=== PATIENT | male | born 1980 | race African-American/Black ===

== ENCOUNTER 2019-03-11 03:53 | Inpatient (IN) | payer MEDICAID ==
[2019-03-11 04:15] LABS: Urine Appearance Clear; Urine Bilirubin Negative (Negative); Urine Blood Negative (Negative); Urine Color Colorless; Urine Glucose 3+(>=500 mg/dL) (Negative); Urine Ketones Trace (Negative); Urine Nitrite Negative (Negative); Urine Protein Negative (Negative); Urine Specific Gravity 1.027 (1.010-1.030); Urine Urobilinogen Negative (Negative)
[2019-03-11] MEDS ORDERED: Ketorolac INJ* 30 MG/ML 1 ML VIAL IV PUSH ONE (04:25)
[2019-03-11] MEDS ORDERED: Morphine 4 MG/ML VIAL (1 ml) 4 MG/ML VIAL IV ONE (04:25)
--- NOTE | 2019-03-11 04:33 | ED ---
Back Pain - HPI Summary HPI Summary: Pt is a 38 y/o M presenting to the ED with a chief complaint of R-sided back pain initially onset a couple of days ago that radiates down to his groin and worsened tonight. He reports dysuria, increased urinary frequency, and waking up with dry mouth. He denies fever, decreased appetite, hematuria, or vomiting. - History of Current Complaint Chief Complaint: EDFlankPain Stated Complaint: BACK PAIN PER PT Time Seen by Provider: 03/11/19 04:18 Hx Obtained From: Patient Onset/Duration: Gradual Onset, Lasting Days, Still Present Onset/Duration: Started Days Ago, Still Present Timing: Constant, Lasting Days Back Pain Location: Radiates To - R flank, radiates to groin Severity Initially: Moderate Severity Currently: Severe Pain Intensity: 9 Pain Scale Used: 0-10 Numeric Aggravating Symptom(s): Nothing Alleviating Symptom(s): Nothing Associated Signs And Symptoms: Positive: Flank Pain. Negative: Fever - Allergies/Home Medications Allergies/Adverse Reactions: Allergies Allergy/AdvReac Type Severity Reaction Status Date / Time No Known Allergies Allergy Verified 03/11/19 03:59 PMH/Surg Hx/FS Hx/Imm Hx Previously Healthy: Yes Endocrine/Hematology History: Denies: Hx Diabetes Cardiovascular History: Denies: Hx Hypertension Infectious Disease History: No Infectious Disease History: Denies: Traveled Outside the [place] in Last 30 Days - Family History Known Family History: Negative: Cardiac Disease - Social History Alcohol Use: Daily Alcohol Amount: "1 bottle a day" Hx Substance Use: Yes Substance Use Type: Reports: Marijuana Hx Tobacco Use: Yes Smoking Status (MU): Light Every Day Tobacco Smoker Type: Cigarettes Have You Smoked in the Last Year: Yes Review of Systems Constitutional: Other - dry mouth Negative: Fever, Other - decreased appetite Negative: Vomiting Positive: dysuria, frequency, flank pain. Negative: hematuria All Other Systems Reviewed And Are Negative: Yes Physical Exam - Summary Physical Exam Summary: Appearance: Well-appearing, Well-nourished, lying in bed comfortably Skin: Warm, dry, no obvious rash Eyes: sclera anicteric, no conjunctival pallor ENT: mucous membranes moist, pharynx appears normal Neck: Supple, nontender Respiratory: Clear to auscultation, no signs of respiratory distress Cardiovascular: Normal S1, S2. No murmurs. Normal distal pulses in tibial and radial bilaterally. Abdomen: Soft, mild R sided abd tenderness, normal active bowel sounds present Musculoskeletal: Normal, Strength/ROM Intact Neurological: A&Ox3, awake and alert, mentation is normal, speech is fluent and appropriate Psychiatric: affect is normal, does not appear anxious or depressed Triage Information Reviewed: Yes Vital Signs On Initial Exam: Initial Vitals Temp Pulse Resp BP Pulse Ox 97.0 F 92 16 155/103 96 03/11/19 03:54 03/11/19 03:54 03/11/19 03:54 03/11/19 03:54 03/11/19 03:54 Vital Signs Reviewed: Yes Diagnostics - Vital Signs Vital Signs Temp Pulse Resp BP Pulse Ox 03/11/19 04:22 93 97 03/11/19 04:21 92 148/113 97 03/11/19 03:54 97.0 F 92 16 155/103 96 - Laboratory Lab Results: Lab Results 03/11/19 Range/Units 04:00 Urine Color Colorless Urine Appearance Clear Urine pH 5.0 (5-9) Ur Specific [place] 1.027 (1.010-1.030) Urine Protein Negative (Negative) Urine Ketones Trace A (Negative) Urine Blood Negative (Negative) Urine Nitrate Negative (Negative) Urine Bilirubin Negative (Negative) Urine Urobilinogen Negative (Negative) Ur Leukocyte Esterase Negative (Negative) Urine Glucose 3+(>=500 mg/dl) A (Negative) Result Diagrams: 03/11/19 04:34 03/11/19 18:00 Lab Statement: Any lab studies that have been ordered have been reviewed, and results considered in the medical decision making process. Back Pain Course/Dx - Course Course Of Treatment: Pt is a 38 y/o M presenting to the ED with a chief complaint of R-sided back pain initially onset a couple of days ago that radiates down to his groin. He reports increased urinary frequency, and waking up with dry mouth. He denies fever, decreased appetite, hematuria, or vomiting. On exam, he has mild R-sided abd tenderness. Pts hematology shows Hct of 38 , MCH of 39, and MCHC of 43. His chemistry shows Chloride of 78, Anion Gap of 21 , Creatinine of 1.50, and Lipase of 156. Labs significant for Sodium of 110, CO2 of 11, and Glucose of 725. 0551 - I spoke with Dr. Moses who accepts the pt for admission with dx of diabetic ketoacidosis. - Diagnoses Provider Diagnoses: DKA (diabetic ketoacidoses) - Critical Care Time Critical Care Time: 30-74 min - 25min Discharge ED - Sign-Out/Discharge Documenting (check all that apply): Patient Departure Patient Received Moderate/Deep Sedation with Procedure: No - Discharge Plan Condition: Stable Disposition: ADMITTED TO [facility] - Billing Disposition and Condition Condition: STABLE Disposition: Admitted to [facility] - Attestation Statements Document Initiated by Scribe: Yes Documenting Scribe: Neida Balderrama Provider For Whom Carolinaibe is Documenting (Include Credential): Jean-Paul Sadler MD. Scribe Attestation: INeida, scrbrandoned for Jean-Paul Sadler MD. on 03/12/19 at [id number]. Scribe Documentation Reviewed: Yes Provider Attestation: The documentation as recorded by the carolinaibeNeida accurately reflects the service I personally performed and the decisions made by me, Jean-Paul Sadler MD. Status of Scribe Document: Viewed Consult Consult: [id number] - I spoke with Dr. Moses who accepts the pt for admission with dx of diabetic ketoacidosis.
[2019-03-11] MEDS: NS 0.9% 1000 ML** 2,000 ML IV ONE (04:45)
[2019-03-11 05:21] LABS: Hematocrit 38 % (42-52); Hemoglobin 16.4 g/dL (14.0-18.0); Mean Corpuscular HGB Conc 43 g/dL (31-36); Mean Corpuscular Hemoglobin 39 pg (27-31); Mean Corpuscular Volume 92 fL (80-94); Red Blood Count 4.18 10^6 /uL (4.18-5.48); Red Cell Distribution Width 15 % (10-15); White Blood Count 3.9 10^3/uL (3.5-10.8)
[2019-03-11 05:45] LABS: Albumin 5.1 g/dL (3.2-5.2); Alkaline Phosphatase 59 U/L (34-104); Calcium 9.4 mg/dL (8.6-10.3); Chloride 78 mmol/L (101-111); EGFR African American 62.7 (>60); EGFR Non-African American 51.8 (>60); Globulin 2.6 g/dL (2-4); Total Protein 7.7 g/dL (6.4-8.9)
[2019-03-11 05:46] LABS: ALT 28 U/L (7-52); HDL Cholesterol 22.1 mg/dL
[2019-03-11 05:49] LABS: Cholesterol 816 mg/dL; Triglycerides 7102 mg/dL
[2019-03-11 05:50] LABS: Anion Gap 21 mmol/L (2-11)
[2019-03-11] MEDS ORDERED: Insulin REGULAR(*) 1 UNITS UNIT IV PUSH ONE (05:50)
[2019-03-11 05:51] LABS: CO2 Carbon Dioxide 11 mmol/L (22-32); Glucose 725 mg/dL (70-100); Sodium 110 mmol/L (135-145)
[2019-03-11 05:52] LABS: BUN/Creatinine Ratio 11.3 (8-20); Blood Urea Nitrogen 17 mg/dL (6-24)
[2019-03-11] MEDS ORDERED: Insulin Infusion 100unit/100mL 100 UNITS/100 ML UNIT IV SCH ×2 (06:00→07:03)
[2019-03-11 06:08] LABS: HIV 4th Generation Nonreactive (Nonreactive)
[2019-03-11 06:16] LABS: LDL Cholesterol Direct 80 mg/dL
[2019-03-11 06:21] LABS: Platelet Count 114 10^3/uL (150-450)
[2019-03-11 06:24] LABS: ABS Eosinophils 0.2 10^3/ul (0-0.6); ABS Lymphocytes 1.5 10^3/ul (1.0-4.8); ABS Monocytes 0.4 10^3/ul (0-0.8); ABS Neutrophils 1.8 10^3/ul (1.5-7.7)
[2019-03-11] MEDS ORDERED: Ondansetron INJ* 2 MG/ML VIAL IV PRN (06:38)
[2019-03-11 06:44] LABS: TSH (Thyroid Stimulating Horm) 1.28 mcIU/mL (0.34-5.60)
[2019-03-11] MEDS ORDERED: LORazepam TAB(*) 1 MG PO SCH (07:00)
[2019-03-11 07:34] LABS: Anion Gap 9 mmol/L (2-11); CO2 Carbon Dioxide 24 mmol/L (22-32); Chloride 86 mmol/L (101-111); EGFR African American 76.7 (>60); EGFR Non-African American 63.4 (>60); Glucose 650 mg/dL (70-100); Sodium 119 mmol/L (135-145)
[2019-03-11] MEDS: NS 0.9% 1000 ML** 1,000 ML IV SCH ×3 (07:48→19:19)
[2019-03-11 08:14] LABS: Calcium 9.2 mg/dL (8.6-10.3); Chloride 88 mmol/L (101-111); EGFR African American 71.4 (>60); Glucose 439 mg/dL (70-100); Phosphorus 3.8 mg/dL (2.5-5.0)
[2019-03-11] MEDS ORDERED: NS 0.9% 1000 ML** 1,000 ML IV ONE (08:25)
[2019-03-11 08:43] LABS: Sodium 118 mmol/L (135-145)
--- NOTE | 2019-03-11 08:43 | PN ---
Date of Service: 03/11/19 - [facility] note Critical Care Services: Pt seen and examined at bedside. Pt presented for evaluation of abd pain and back pain, was noted to have AG metabolic acidosis. Pt was admitted for management of DKA, hypertriglyceredmia, pancreatitis. Pt with significant ETOH abuse, was admitted in the past for ETOH induced pancreatitis. Pt continues to drink. He has not seen PCP for many years. He has been having polydipsia, polyuria for few days. He has also been having back pain and RUQ pain. Denies N,V,diarrhea. Reports subjective fevers and chills for 1 day. Patient was given 3L fluid bolus, was started on Insulin drip, currently at 10 units. Pt denies any other complaints other than back pain. Vital Signs: Temp Pulse Resp BP SpO2 FiO2 97.7 F 72 13 136/95 97 03/11/19 07:42 03/11/19 08:15 03/11/19 08:15 03/11/19 08:15 03/11/19 08:15 Physical Exam: Gen: Pt in NAD HEENT: PERRLA, dry mucus membrane Lungs: Clear to auscultation Cardiac: S1, S2+ Abdomen: Soft, BS+, mild tenderness in RUQ, no rebound Extremities: Normal ROM Neuro: No focal deficits Skin: Dry, no rash Fluid Balance (Past 24 Hours): Intake & Output 03/09/19 03/10/19 03/11/19 03/12/19 06:59 06:59 06:59 06:59 Intake Total 1999 Balance 1999 Weight 230 lb Intake: IV Fluids 1999 Labs: Laboratory Results - last 24 hr 03/11/19 03/11/19 03/11/19 04:00 04:33 04:34 WBC 3.9 RBC 4.18 Hgb 16.4 Hct 38 L MCV 92 MCH 39 H MCHC 43 H RDW 15 Plt Count 114 L MPV 11.0 H Neut % (Auto) Not Reportable Lymph % (Auto) Not Reportable [place]wey % (Auto) Not Reportable Eos % (Auto) Not Reportable Baso % (Auto) Not Reportable Absolute Neuts (auto) 1.8 Absolute Lymphs (auto) 1.5 Absolute Monos (auto) 0.4 Absolute Eos (auto) 0.2 Absolute Basos (auto) Not Reportable Absolute Nucleated RBC Not Reportable Neutrophils % 45.0 Lymphocytes % 39.0 Monocytes % 11.0 Eosinophils % 5.0 Nucleated RBC % Not Reportable Normal RBC Morphology Normal ABG pH ABG pCO2 ABG pO2 ABG HCO3 ABG O2 Saturation ABG Base Excess Sodium Potassium Chloride Carbon Dioxide Anion Gap BUN Creatinine Est GFR ( Amer) Est GFR (Non-Af Amer) BUN/Creatinine Ratio Glucose POC Glucose (mg/dL) > 444 H* Lactic Acid Calcium Phosphorus Total Bilirubin AST ALT Alkaline Phosphatase Total Protein Albumin Globulin Albumin/Globulin Ratio Triglycerides Cholesterol LDL Cholesterol LDL Cholesterol Direct HDL Cholesterol Lipase TSH Urine Color Colorless Urine Appearance Clear Urine pH 5.0 Ur Specific [place] 1.027 Urine Protein Negative Urine Ketones Trace A Urine Blood Negative Urine Nitrate Negative Urine Bilirubin Negative Urine Urobilinogen Negative Ur Leukocyte Esterase Negative U Sodium Concentration Urine Glucose 3+(>=500 mg/dl) A HIV 1&2 Ab/P24 Ag 4thGn 03/11/19 03/11/19 03/11/19 04:34 04:34 04:35 WBC RBC Hgb Hct MCV MCH MCHC RDW Plt Count MPV Neut % (Auto) Lymph % (Auto) [place] % (Auto) Eos % (Auto) Baso % (Auto) Absolute Neuts (auto) Absolute Lymphs (auto) Absolute Monos (auto) Absolute Eos (auto) Absolute Basos (auto) Absolute Nucleated RBC Neutrophils % Lymphocytes % Monocytes % Eosinophils % Nucleated RBC % Normal RBC Morphology ABG pH ABG pCO2 ABG pO2 ABG HCO3 ABG O2 Saturation ABG Base Excess Sodium 110 L* Potassium TNP Chloride 78 L Carbon Dioxide 11 L* Anion Gap 21 H BUN 17 Creatinine 1.50 H Est GFR ( Amer) 62.7 Est GFR (Non-Af Amer) 51.8 BUN/Creatinine Ratio 11.3 Glucose 725 H* POC Glucose (mg/dL) Lactic Acid 1.3 Calcium 9.4 Phosphorus Total Bilirubin 0.40 AST TNP ALT 28 Alkaline Phosphatase 59 Total Protein 7.7 Albumin 5.1 Globulin 2.6 Albumin/Globulin Ratio 2.0 Triglycerides 7102 Cholesterol 816 LDL Cholesterol LDL Cholesterol Direct 80 HDL Cholesterol 22.1 Lipase 156 H TSH 1.28 Urine Color Urine Appearance Urine pH Ur Specific [place] Urine Protein Urine Ketones Urine Blood Urine Nitrate Urine Bilirubin Urine Urobilinogen Ur Leukocyte Esterase U Sodium Concentration Urine Glucose HIV 1&2 Ab/P24 Ag 4thGn Nonreactive 03/11/19 03/11/19 03/11/19 06:03 06:19 06:24 WBC RBC Hgb Hct MCV MCH MCHC RDW Plt Count MPV Neut % (Auto) Lymph % (Auto) [place] % (Auto) Eos % (Auto) Baso % (Auto) Absolute Neuts (auto) Absolute Lymphs (auto) Absolute Monos (auto) Absolute Eos (auto) Absolute Basos (auto) Absolute Nucleated RBC Neutrophils % Lymphocytes % Monocytes % Eosinophils % Nucleated RBC % Normal RBC Morphology ABG pH 7.36 ABG pCO2 39 ABG pO2 88 ABG HCO3 22.5 ABG O2 Saturation TNP ABG Base Excess -3.1 L Sodium 119 L* D Potassium TNP Chloride 86 L Carbon Dioxide 24 Anion Gap 9 BUN Creatinine 1.26 H Est GFR ( Amer) 76.7 Est GFR (Non-Af Amer) 63.4 BUN/Creatinine Ratio Glucose 650 H* POC Glucose (mg/dL) Lactic Acid Calcium 9.0 Phosphorus Total Bilirubin AST ALT Alkaline Phosphatase Total Protein Albumin Globulin Albumin/Globulin Ratio Triglycerides Cholesterol LDL Cholesterol LDL Cholesterol Direct HDL Cholesterol Lipase TSH Urine Color Urine Appearance Urine pH Ur Specific [place] Urine Protein Urine Ketones Urine Blood Urine Nitrate Urine Bilirubin Urine Urobilinogen Ur Leukocyte Esterase U Sodium Concentration 23 Urine Glucose HIV 1&2 Ab/P24 Ag 4thGn 03/11/19 03/11/19 07:17 07:21 WBC RBC Hgb Hct MCV MCH MCHC RDW Plt Count MPV Neut % (Auto) Lymph % (Auto) [place] % (Auto) Eos % (Auto) Baso % (Auto) Absolute Neuts (auto) Absolute Lymphs (auto) Absolute Monos (auto) Absolute Eos (auto) Absolute Basos (auto) Absolute Nucleated RBC Neutrophils % Lymphocytes % Monocytes % Eosinophils % Nucleated RBC % Normal RBC Morphology ABG pH ABG pCO2 ABG pO2 ABG HCO3 ABG O2 Saturation ABG Base Excess Sodium Potassium Chloride 88 L Carbon Dioxide Anion Gap BUN Creatinine 1.34 H Est GFR ( Amer) 71.4 Est GFR (Non-Af Amer) 59.0 BUN/Creatinine Ratio Glucose 439 H POC Glucose (mg/dL) > 444 H* Lactic Acid Calcium 9.2 Phosphorus 3.8 Total Bilirubin AST ALT Alkaline Phosphatase Total Protein Albumin Globulin Albumin/Globulin Ratio Triglycerides Cholesterol LDL Cholesterol LDL Cholesterol Direct HDL Cholesterol Lipase TSH Urine Color Urine Appearance Urine pH Ur Specific [place] Urine Protein Urine Ketones Urine Blood Urine Nitrate Urine Bilirubin Urine Urobilinogen Ur Leukocyte Esterase U Sodium Concentration Urine Glucose HIV 1&2 Ab/P24 Ag 4thGn Studies: CT abdomen- pending EKG: Normal sinus rhythm, no acute ST changes Nutrition: NPO since on Insulin drip Impression: 38 y o m with alcohol abuse with h/o pancreatitis a/w abd pain, back pain. 1. DKA 2. Acute pancreatitis 3.Severe hypertriglyceredemia 4.Hyponatremia 5. AG metabolic acidosis 6.Acute renal failure 7.ETOH abuse 8. Thrombocytopenia Plan: 1. DKA/AG metabolic acidosis/Hypertriglycerdemia/Pancreatitis: ETOH induced pancreatitis, also contributed by hypertriglyceredmia. Pt receiving fluid resuscitation, also started on Insulin drip which would be adjusted as per DKA protocol. Will monitor sugars q hourly. Unable to obtain potassium levels due to severe hypertriglyceredemia. Contacted lab/Dr Schneider, will be able to check over I-STAT. BMP sent. Hyponatremia sec to hyperglycemia, corrected sodium around 127. NPO for now, AG closed. Will obtain CT abdomen for evaluation of intraabdominal pathology. Will hold off on abx for now. Will correct hypertriglyceredia with insulin as omega-3 FA are not available and fibrates would take 2-3 weeks to work. Pt on [facility] protocol for ETOH withdrawl. Thiamine, folate ordered. Will check BMP q hrs. Monitor UO closely. Replete electrolytes as indicated when able to measure. 2. Thromboctopenia: Sec to ETOH abuse and possible cirrhosis 2.DVT px: Lovenox Critical Care Time: 30 min
[2019-03-11] MEDS: Enoxaparin(*) 40 MG/0.4 ML SYR SUBCUT SCH (09:33)
[2019-03-11 09:50] LABS: Potassium, Whole Blood 4.9 mmol/L (3.4-4.5)
--- NOTE | 2019-03-11 09:52 | HP ---
HISTORY AND PHYSICAL: ADDENDUM: PHYSICAL EXAMINATION GENERAL: Mildly uncomfortable-appearing man, but in no acute distress, alert and interactive, very pleasant. VITAL SIGNS: Afebrile, heart rate 70s, blood pressure 125/91, respiratory rate 16, oxygen saturation 97% on room air. HEENT: Dry mucous membranes. OP clear. Sclerae anicteric. NECK: Supple. No JVD. HEART: Regular rate and rhythm. No murmurs, gallops, or rubs. LUNGS: Clear to auscultation bilaterally. ABDOMEN: Soft, diffusely tender to palpation without guarding or rebound. No distention. No fluid wave. BACK: CVA punch tenderness on the right. No spinal tenderness. NEURO: A and O x3. No focal weakness. SKIN: Mildly diaphoretic. DIAGNOSTIC STUDIES/LAB DATA: CBC notable for platelets of 114, no leukocytosis. BMP notable for sodium 110, corrected to low 120s for hyperglycemia. Potassium not tested due to hemolysis. Carbon dioxide 11 with anion gap 21. Creatinine newly elevated to 1.5 with normal BUN. Glucose 725. LFTs unremarkable; however, AST was not tested. Lipids with triglycerides 7000. Lipase 156. UA significant for trace ketones and glucose. ABG not performed. ASSESSMENT AND PLAN: Mr. Garcia is a 38-year-old man with a history of alcohol use disorder and pancreatitis, who is presenting with right flank pain, abdominal pain, polyuria, and polydipsia. He was found with hyperglycemia, hyponatremia. UA with ketones. He is being admitted to the ICU for treatment of diabetic ketoacidosis. 1. Diabetic ketoacidosis. The patient should be continued on IV fluids with normal saline at 250 mL/hour. We will continue to monitor volume status. He is also to be continued on insulin drip at 0.1 unit/kg/hour. He will have fingerstick monitoring every 1 to 2 hours. His potassium has been repeated and is still pending. When this level resolves, we will supplement with potassium. He will have a BMP with mags repeated in 2 hours to monitor for potassium levels and anion gap. We will order ABG and follow up results for pH to determine if the patient needs bicarb. He will be monitored closely for signs of infection, although this is currently low on differential given the absence of fever, leukocytosis, and normal lactate. 2. Right flank pain. While the patient did have CVA tenderness on the right, he currently is without evidence for urinary tract infection or nephrolithiasis per UA. It is possible that he is experiencing pain from pancreatitis, which would typically be epigastric pain that radiates to his back, so this would be an atypical presentation. Of note, his lipase was elevated to 156. He denies anorexia, nausea, or vomiting. We will continue IV fluids in case of pancreatitis and monitor his exam closely. 3. Alcohol use disorder. We will initiate the patient on [place] protocol with thiamine and folic acid supplements. Importance of alcohol cessation was stressed with the patient. 4. Tobacco use disorder. Discussed with the patient importance of tobacco cessation, especially given family history of lung cancer. He expresses understanding of this. 5. DVT prophylaxis, initiate Lovenox subcu daily. 6. Code status. Full code. TIME SPENT: Approximately 60 minutes was spent on admission of this patient, more than half of which was spent at bedside for interview and exam. [id number]/[facility] #: [id number] EUGENIO
--- NOTE | 2019-03-11 10:08 | HP ---
CC: Marcy Soliz MD* HISTORY AND PHYSICAL: DATE OF ADMISSION: 03/11/19 PRIMARY CARE PHYSICIAN: Marcy Soliz MD HEALTHCARE PROXY: His healthcare proxy is his Ayush bonilla. CODE STATUS: Full. CHIEF COMPLAINT: Right flank pain, abdominal pain, polyuria, and polydipsia for 3 days. HISTORY OF PRESENT ILLNESS: Mr. Garcia is a 38-year-old man with a history of alcohol use disorder complicated by hospitalization for acute pancreatitis in 2013, who is presenting with few days of right flank pain associated with diffuse abdominal pain, polyuria, and polydipsia. He reports being in his usual state of health until 4 days ago when these symptoms started. He denies history of diabetes, but does report a history of heavy alcohol use. He states that he drinks about 1/5th of liquor approximately 4 days per week. Over the last few days, he has had an okay appetite. Denies nausea, vomiting, constipation, diarrhea. He does think he has had intermittent fevers, although has not measured this at home. He reports significant dry mouth. Otherwise, he denies shortness of breath, chest pain, rigors, lower extremity swelling, jaundice, dysuria, or hematuria. In the emergency room, the patient was noted to have [id number] glucose of over 444; so a basic was checked, revealing a sodium of 110, carbon dioxide of 11, anion gap 21, and glucose 725. UA was significant for glucosuria and ketones. He did not have a fever or leukocytosis. He was ordered for insulin 5 units IV push and started on insulin drip. He was also ordered for 2 L of normal saline, morphine, ketorolac, and asked to be admitted to the hospitalist service for DKA management. PAST MEDICAL HISTORY: Alcohol use disorder, complicated by acute pancreatitis, hospitalization in 2013. HOME MEDICATIONS: None. ALLERGIES: No known drug allergies. FAMILY HISTORY: Both parents had diabetes. His father from an MS. He also had lung cancer and was an active smoker. His sister has diabetes and is on dialysis, not insulin dependent. SOCIAL HISTORY: The patient lives with his mother Alejandra, and his fiAyush louise. 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 He smokes about 5 to 6 cigarettes per day and drinks about 4/5th of liquor per week. He denies recreational drug use. ROS: 10-point ROS performed and pertinent positive and negatives are listed in the HPI. PHYSICAL EXAMINATION GENERAL: Mildly uncomfortable-appearing man, but in no acute distress, alert and interactive, very pleasant. VITAL SIGNS: Afebrile, heart rate 70s, blood pressure 125/91, respiratory rate 16, oxygen saturation 97% on room air. HEENT: Dry mucous membranes. OP clear. Sclerae anicteric. NECK: Supple. No JVD. HEART: Regular rate and rhythm. No murmurs, gallops, or rubs. LUNGS: Clear to auscultation bilaterally. ABDOMEN: Soft, diffusely tender to palpation without guarding or rebound. No distention. No fluid wave. BACK: CVA punch tenderness on the right. No spinal tenderness. NEURO: A and O x3. No focal weakness. SKIN: Mildly diaphoretic. DIAGNOSTIC STUDIES/LAB DATA: CBC notable for platelets of 114, no leukocytosis. BMP notable for sodium 110, corrected to low 120s for hyperglycemia. Potassium not tested due to hemolysis. Carbon dioxide 11 with anion gap 21. Creatinine newly elevated to 1.5 with normal BUN. Glucose 725. LFTs unremarkable; however, AST was not tested. Lipids with triglycerides 7000. Lipase 156. UA significant for trace ketones and glucose. ABG not performed. ASSESSMENT AND PLAN: Mr. Garcia is a 38-year-old man with a history of alcohol use disorder and pancreatitis, who is presenting with right flank pain, abdominal pain, polyuria, and polydipsia. He was found with hyperglycemia, hyponatremia. UA with ketones. He is being admitted to the ICU for treatment of diabetic ketoacidosis. 1. Diabetic ketoacidosis. The patient should be continued on IV fluids with normal saline at 250 mL/hour. We will continue to monitor volume status. He is also to be continued on insulin drip at 0.1 unit/kg/hour. He will have fingerstick monitoring every 1 to 2 hours. His potassium has been repeated and is still pending. When this level resolves, we will supplement with potassium. He will have a BMP repeated in 2 hours to monitor for potassium levels and anion gap. We will order ABG and follow up results for pH to determine if the patient needs bicarb. He will be monitored closely for signs of infection, although this is currently low on differential given the absence of fever, leukocytosis, and normal lactate. 2. Right flank pain. While the patient did have CVA tenderness on the right, he currently is without evidence for urinary tract infection or nephrolithiasis per UA. It is possible that he is experiencing pain from pancreatitis, which would typically be epigastric pain that radiates to his back, so this would be an atypical presentation. Of note, his lipase was elevated to 156. He denies anorexia, nausea, or vomiting. We will continue IV fluids in case of pancreatitis and monitor his exam closely. 3. Alcohol use disorder. We will initiate the patient on [place] protocol with thiamine and folic acid supplements. Importance of alcohol cessation was stressed with the patient. 4. Tobacco use disorder. Discussed with the patient importance of tobacco cessation, especially given family history of lung cancer. He expresses understanding of this. 5. DVT prophylaxis, initiate Lovenox subcu daily. 6. Code status. Full code. TIME SPENT: Approximately 60 minutes was spent on admission of this patient, more than half of which was spent at bedside for interview and exam. [id number]/[facility] #: [id number]/[facility] #: [id number] EUGENIO
[2019-03-11] MEDS ORDERED: Insulin GLARGINE(*) 1 UNITS UNIT ONE (10:51)
[2019-03-11] MEDS ORDERED: Insulin GLARGINE(*) 1 UNITS UNIT SUBCUT ONE (11:00)
[2019-03-11 11:28] LABS: Triglycerides 6519 mg/dL
[2019-03-11 11:29] LABS: Anion Gap 22 mmol/L (2-11); CO2 Carbon Dioxide 8 mmol/L (22-32)
[2019-03-11] MEDS ORDERED: D5W 1/2 NS 1000 ML BAG* 1,000 ML IV SCH ×2 (12:00→15:16)
[2019-03-11] MEDS ORDERED: Iodixanol* (CONTRAST) 320 MG/ML 100 ML SDV IV ONE (12:37)
[2019-03-11 14:15] LABS: Potassium, Whole Blood 5.9 mmol/L (3.4-4.5)
[2019-03-11 14:22] LABS: Anion Gap 12 mmol/L (2-11); CO2 Carbon Dioxide 17 mmol/L (22-32); Calcium 8.5 mg/dL (8.6-10.3); Chloride 96 mmol/L (101-111); EGFR African American 110.3 (>60); EGFR Non-African American 91.1 (>60); Glucose 125 mg/dL (70-100); Phosphorus 3.6 mg/dL (2.5-5.0); Sodium 125 mmol/L (135-145)
[2019-03-11] MEDS: Thiamine TAB* 100 MG TAB PO SCH (14:53)
[2019-03-11] MEDS: Multivitamins/Minerals TAB PO SCH (14:53)
[2019-03-11] MEDS: Folic Acid TAB* 1 MG PO SCH (14:53)
[2019-03-11 15:16] LABS: Triglycerides 5358 mg/dL
[2019-03-11 18:23] LABS: Potassium, Whole Blood 5.1 mmol/L (3.4-4.5)
[2019-03-11 18:50] LABS: CO2 Carbon Dioxide 22 mmol/L (22-32); Chloride 94 mmol/L (101-111); EGFR African American 97.9 (>60); EGFR Non-African American 80.9 (>60); Glucose 268 mg/dL (70-100); Sodium 123 mmol/L (135-145)
[2019-03-11 18:51] LABS: Anion Gap 7 mmol/L (2-11); Calcium 8.7 mg/dL (8.6-10.3)
[2019-03-11 19:03] LABS: BUN/Creatinine Ratio 11.8 (8-20); Blood Urea Nitrogen 12 mg/dL (6-24)
[2019-03-11] MEDS ORDERED: Ketorolac INJ* 15 MG/ML 1 ML VIAL ONE (19:07)
[2019-03-11] MEDS: Ketorolac INJ* 15 MG/ML 1 ML VIAL IV PUSH PRN (19:20)
[2019-03-11] MEDS: Insulin LISPRO* 1 UNITS UNIT SUBCUT SCH (21:07)
[2019-03-12] MEDS: Ketorolac INJ* 15 MG/ML 1 ML VIAL IV PUSH PRN ×2 (06:24→23:41)
[2019-03-12] MEDS: Enoxaparin(*) 40 MG/0.4 ML SYR SUBCUT SCH (06:24)
[2019-03-12 06:59] LABS: Hematocrit 33 % (42-52); Hemoglobin 14.3 g/dL (14.0-18.0); Mean Corpuscular HGB Conc 43 g/dL (31-36); Mean Corpuscular Hemoglobin 39 pg (27-31); Mean Corpuscular Volume 90 fL (80-94); Mean Platelet Volume 11.3 fL (7.4-10.4); Platelet Count 108 10^3/uL (150-450); Red Blood Count 3.69 10^6 /uL (4.18-5.48); Red Cell Distribution Width 15 % (10-15); White Blood Count 3.7 10^3/uL (3.5-10.8)
[2019-03-12 07:37] LABS: Calcium 8.4 mg/dL (8.6-10.3); EGFR African American 94.7 (>60); EGFR Non-African American 78.2 (>60)
[2019-03-12 08:59] LABS: BUN/Creatinine Ratio 10.5 (8-20)
[2019-03-12] MEDS: Insulin LISPRO* 1 UNITS UNIT SUBCUT SCH ×4 (09:13→21:25)
[2019-03-12] MEDS: Insulin GLARGINE(*) 1 UNITS UNIT SUBCUT SCH (09:13)
[2019-03-12] MEDS: Multivitamins/Minerals TAB PO SCH (09:14)
[2019-03-12] MEDS: Thiamine TAB* 100 MG TAB PO SCH (09:14)
[2019-03-12] MEDS: Folic Acid TAB* 1 MG PO SCH (09:14)
--- NOTE | 2019-03-12 09:51 | PN ---
Date of Service: 03/12/19 Critical Care Services: DKA overall improved but GAP widening this AM and glucose up Vital Signs: Temp Pulse Resp BP SpO2 FiO2 36.8 C 67 12 141/108 98 03/12/19 08:00 03/12/19 09:00 03/12/19 09:00 03/12/19 09:00 03/12/19 09:00 Physical Exam: Gen: A&O, no complaints HEENT: NCAT, PERRL Lungs: clear Cardiac: S1S2 regular Abdomen: soft, NT, ND, +BS Extremities: no edema Neuro: A&O, grossly non-focal Fluid Balance (Past 24 Hours): I= O= Net Intake & Output 03/10/19 03/11/19 03/12/19 03/13/19 06:59 06:59 06:59 06:59 Intake Total 1999 5220 500 Output Total 1900 Balance 1999 3320 500 Weight 104.326 kg 107.3 kg Intake: IV Fluids 1999 3186 D5W / NS 617 NS (0.9%) 2569 Medicated IV 44 CC - Insulin 44 Oral 1989 500 Output: Urine 0 Other: Estimated Void Medium Date of Last Bowel 03/11/19 Movement # Bowel Movements 1 Estimated Stool Amount Large Labs: Laboratory Results - last 24 hr 03/11/19 03/11/19 03/11/19 04:34 06:19 07:21 WBC RBC Hgb Hct MCV MCH MCHC RDW Plt Count MPV Sodium 118 L* Whole Bld Sodium Potassium TNP Whole Bld Potassium Chloride 88 L Whole Bld Chloride Carbon Dioxide 8 L* Anion Gap 22 H BUN TNP Creatinine 1.34 H Est GFR ( Amer) 71.4 Est GFR (Non-Af Amer) 59.0 BUN/Creatinine Ratio TNP Glucose 439 H POC Glucose (mg/dL) Hemoglobin A1c 10.4 H Calcium 9.2 Phosphorus 3.8 Magnesium TNP Triglycerides 6519 Lipase Urine Osmolality 599 03/11/19 03/11/19 03/11/19 08:30 09:34 09:35 WBC RBC Hgb Hct MCV MCH MCHC RDW Plt Count MPV Sodium Whole Bld Sodium 134 L Potassium Whole Bld Potassium 4.9 H Chloride Whole Bld Chloride 103 Carbon Dioxide Anion Gap BUN Creatinine Est GFR ( Amer) Est GFR (Non-Af Amer) BUN/Creatinine Ratio Glucose POC Glucose (mg/dL) 405 H* 270 H Hemoglobin A1c Calcium Phosphorus Magnesium Triglycerides Lipase Urine Osmolality 03/11/19 03/11/19 03/11/19 09:35 10:39 11:36 WBC RBC Hgb Hct MCV MCH MCHC RDW Plt Count MPV Sodium Whole Bld Sodium Potassium Whole Bld Potassium Chloride Whole Bld Chloride Carbon Dioxide 18 L Anion Gap BUN Creatinine Est GFR ( Amer) Est GFR (Non-Af Amer) BUN/Creatinine Ratio Glucose POC Glucose (mg/dL) 210 H 165 H Hemoglobin A1c Calcium Phosphorus Magnesium Triglycerides Lipase Urine Osmolality 03/11/19 03/11/19 03/11/19 12:15 13:51 13:52 WBC RBC Hgb Hct MCV MCH MCHC RDW Plt Count MPV Sodium 125 L Whole Bld Sodium Potassium TNP Whole Bld Potassium Chloride 96 L Whole Bld Chloride Carbon Dioxide 17 L Anion Gap 12 H BUN TNP Creatinine 0.92 Est GFR ( Amer) 110.3 Est GFR (Non-Af Amer) 91.1 BUN/Creatinine Ratio TNP Glucose 125 H POC Glucose (mg/dL) 204 H 181 H Hemoglobin A1c Calcium 8.5 L Phosphorus 3.6 Magnesium TNP Triglycerides 5358 Lipase 125 H Urine Osmolality 03/11/19 03/11/19 03/11/19 13:52 15:10 16:22 WBC RBC Hgb Hct MCV MCH MCHC RDW Plt Count MPV Sodium Whole Bld Sodium 131 L Potassium Whole Bld Potassium 5.9 H Chloride Whole Bld Chloride 104 Carbon Dioxide Anion Gap BUN Creatinine Est GFR ( Amer) Est GFR (Non-Af Amer) BUN/Creatinine Ratio Glucose POC Glucose (mg/dL) 286 H 349 H Hemoglobin A1c Calcium Phosphorus Magnesium Triglycerides Lipase Urine Osmolality 03/11/19 03/11/19 03/11/19 18:00 18:00 20:31 WBC RBC Hgb Hct MCV MCH MCHC RDW Plt Count MPV Sodium 123 L Whole Bld Sodium 132 L Potassium TNP Whole Bld Potassium 5.1 H Chloride 94 L Whole Bld Chloride 103 Carbon Dioxide 22 Anion Gap 7 BUN 12 Creatinine 1.02 Est GFR ( Amer) 97.9 Est GFR (Non-Af Amer) 80.9 BUN/Creatinine Ratio 11.8 Glucose 268 H POC Glucose (mg/dL) 297 H Hemoglobin A1c Calcium 8.7 Phosphorus Magnesium TNP Triglycerides Lipase Urine Osmolality 03/11/19 03/12/19 03/12/19 22:30 06:50 06:50 WBC 3.7 RBC 3.69 L Hgb 14.3 Hct 33 L MCV 90 MCH 39 H MCHC 43 H RDW 15 Plt Count 108 L MPV 11.3 H Sodium 124 L Whole Bld Sodium Potassium 5.0 Whole Bld Potassium Chloride 95 L Whole Bld Chloride Carbon Dioxide 17 L Anion Gap 12 H BUN 11 Creatinine 1.05 Est GFR ( Amer) 94.7 Est GFR (Non-Af Amer) 78.2 BUN/Creatinine Ratio 10.5 Glucose 280 H POC Glucose (mg/dL) Hemoglobin A1c Calcium 8.4 L Phosphorus Magnesium TNP Triglycerides Lipase Urine Osmolality Studies: EKG, CT abd reviewed Nutrition: Matteo PO Impression: DKA, severe hypertriglyceridemia, severe hypercholesterolemia Plan: DKA - AG had resolved but now going the wrong way and glucose creeping back to 400. Lantus 10 yesterday. Give Lantus 25units now and continue SSIC. Continue PO and encourage fluids. Recheck labs at 1400 to assure he's going the right direction again. Hypertriglyceridemia - Trigs over 6K on admission. Now 5K. Will start fenofibrate. Needs ETOH cessation. Needs low fat, extremely low fat diet. Hypercholesterolemia - will start lipitor at 20mg given the multiple hepatic insults present rather than straight to high intensity. AV Block - Tele strips from overnight suspicious for some occasional blocked beats vs sinus pause. Check ECHO. Pt counseled extensively about his risk for pancreatitis, CV morbidity and mortality. He was told that ETOH cessation and dietary discretion along with management of his diabetes were the keys to managing this problem. He voiced understanding.
[2019-03-12 14:56] LABS: Anion Gap 12 mmol/L (2-11); CO2 Carbon Dioxide 16 mmol/L (22-32); Calcium 8.7 mg/dL (8.6-10.3); EGFR African American 86.1 (>60); EGFR Non-African American 71.1 (>60); Glucose 172 mg/dL (70-100)
[2019-03-12 15:40] LABS: Potassium, Whole Blood 7.2 mmol/L (3.4-4.5)
[2019-03-12] MEDS ORDERED: Sodium Bicarbonate 8.4% IV* 50 ML VIAL IV ONE (16:01)
[2019-03-12] MEDS ORDERED: Furosemide IV* 10 MG/ML VIAL (40 MG) IV ONE (16:03)
[2019-03-12 16:05] LABS: BUN/Creatinine Ratio 9.6 (8-20); Blood Urea Nitrogen 11 mg/dL (6-24)
[2019-03-12] MEDS ORDERED: Calcium Gluconate INJ* 1 GM in NS 0.9% 50 ML* 50 ML IVPB ONE (16:30)
[2019-03-12] MEDS: Atorvastatin* 20 MG TAB PO SCH (17:06)
[2019-03-12 18:56] LABS: Calcium 9.6 mg/dL (8.6-10.3); EGFR African American 77.4 (>60)
[2019-03-12 19:47] LABS: BUN/Creatinine Ratio 10.4 (8-20)
[2019-03-12] MEDS: Nicotine* 2MG (FRUIT FLAVOR) GUM PO PRN (21:07)
[2019-03-13] MEDS: Enoxaparin(*) 40 MG/0.4 ML SYR SUBCUT SCH (06:05)
[2019-03-13 06:59] LABS: Anion Gap 11 mmol/L (2-11); CO2 Carbon Dioxide 23 mmol/L (22-32); Chloride 90 mmol/L (101-111); EGFR African American 90.7 (>60); EGFR Non-African American 74.9 (>60); Glucose 264 mg/dL (70-100); Sodium 124 mmol/L (135-145)
[2019-03-13] MEDS: Insulin LISPRO* 1 UNITS UNIT SUBCUT SCH ×4 (08:12→21:54)
[2019-03-13 08:13] LABS: Triglycerides 5832 mg/dL
[2019-03-13] MEDS: Folic Acid TAB* 1 MG PO SCH (08:13)
[2019-03-13] MEDS: Thiamine TAB* 100 MG TAB PO SCH (08:13)
[2019-03-13] MEDS: Insulin GLARGINE(*) 1 UNITS UNIT SUBCUT SCH ×2 (08:13→10:24)
[2019-03-13] MEDS: Multivitamins/Minerals TAB PO SCH (08:13)
[2019-03-13] MEDS: Ketorolac INJ* 15 MG/ML 1 ML VIAL IV PUSH PRN (08:14)
--- NOTE | 2019-03-13 10:01 | PN ---
Date of Service: 03/13/19 Critical Care Services: Wore the CPAP overnight Vital Signs: Temp Pulse Resp BP SpO2 FiO2 36.5 C 73 13 132/106 100 03/13/19 08:00 03/13/19 09:03 03/13/19 09:03 03/13/19 09:03 03/13/19 09:03 Physical Exam: Gen: Awake and alert with no complaints other than hospitalization itself. HEENT: NCAT, PERRL Lungs: clear Cardiac: S1S2 regular Abdomen: soft, NT, ND, +BS Extremities: no edema Neuro: A&O, grossly non-focal Fluid Balance (Past 24 Hours): I= O= Net Intake & Output 03/11/19 03/12/19 03/13/19 03/14/19 06:59 06:59 06:59 06:59 Intake Total 1999 5220 2914 0 Output Total 1900 4750 125 Balance 1999 3320 -1836 -125 Weight 104.326 kg 107.3 kg 105 kg Intake: IV Fluids 1999 3186 384 D5W 07/12 NS 617 NS (0.9%) 2569 384 Medicated IV 44 CC - Insulin 44 Oral 1989 2530 0 Output: Urine 1900 4750 125 Other: Estimated Void Medium Date of Last Bowel 03/11/19 Movement # Bowel Movements 1 Estimated Stool Amount Large Labs: Laboratory Results - last 24 hr 03/12/19 03/12/19 03/12/19 06:45 12:58 14:22 Sodium TNP Whole Bld Sodium Potassium TNP Whole Bld Potassium Chloride TNP Whole Bld Chloride Carbon Dioxide 16 L Anion Gap 12 H BUN 11 Creatinine 1.14 Est GFR ( Amer) 86.1 Est GFR (Non-Af Amer) 71.1 BUN/Creatinine Ratio 9.6 Glucose 172 H POC Glucose (mg/dL) 339 H Calcium 8.7 Triglycerides TSH 0.60 Free T4 0.90 Free T3 3.40 03/12/19 03/12/19 03/12/19 15:27 18:01 18:11 Sodium 124 L Whole Bld Sodium 132 L Potassium 4.0 Whole Bld Potassium 7.2 H* Chloride 89 L Whole Bld Chloride 106 Carbon Dioxide 25 Anion Gap 10 BUN 13 Creatinine 1.25 H Est GFR ( Amer) 77.4 Est GFR (Non-Af Amer) 64.0 BUN/Creatinine Ratio 10.4 Glucose 307 H POC Glucose (mg/dL) 320 H Calcium 9.6 Triglycerides TSH Free T4 Free T3 03/12/19 03/13/19 03/13/19 21:12 06:12 07:09 Sodium 124 L Whole Bld Sodium 135 L Potassium TNP Whole Bld Potassium 4.0 Chloride 90 L Whole Bld Chloride 99 Carbon Dioxide 23 Anion Gap 11 BUN TNP Creatinine 1.09 Est GFR ( Amer) 90.7 Est GFR (Non-Af Amer) 74.9 BUN/Creatinine Ratio TNP Glucose 264 H POC Glucose (mg/dL) 346 H Calcium 9.0 Triglycerides TNP TSH Free T4 Free T3 03/13/19 03/13/19 07:09 07:52 Sodium Whole Bld Sodium Potassium Whole Bld Potassium Chloride Whole Bld Chloride Carbon Dioxide Anion Gap BUN TNP Creatinine Est GFR ( Amer) Est GFR (Non-Af Amer) BUN/Creatinine Ratio Glucose POC Glucose (mg/dL) 300 H Calcium Triglycerides 5832 TSH Free T4 Free T3 Studies: Still some pauses on TELE but better on CPAP Nutrition: Tolerating PO well. Low fat and CCHO. Glucose still high this AM. Impression: DKA with new Dx of DM. Severe dyslipidemia. ANDRE Plan: DKA - resolved. Diabetes Mellitus - new dx. HgbA1C is pending. Lantus 25 yesterday and glucose still 300 this AM. Lantus doubled to 50 this AM. Cont SSIC. Dyslipidemia - Trigs at 6000, Cholesterol at 800. Fenofibrate and Lipitor started. TFTs normal. Lipase low. Counseled on diet and ETOH. ANDRE - pauses vs dropped beats 2 nights ago. Used CPAP last night with significant improvement in the arrhythmia. Arrhythmia - sinus pauses vs block - ECHO ordered. Better with CPAP at night. HTN - moderate but I have hesitated to treat aggressively as yet with volume status in flux along with renal function. Hyperkalemia - hard to know if an artifact or not. Treated last PM with NaHCO3, Calcium and lasix and resolved. Medically clear for transfer to floor on Tele.
[2019-03-13] MEDS ORDERED: Insulin GLARGINE(*) 1 UNITS UNIT SUBCUT ONE (10:15)
--- NOTE | 2019-03-13 15:20 | ECHO ---
*[facility]* [place] [address] Fax #: [phone] Transthoracic Echocardiogram Patient: Gray Garcia : 1980 Study Date: 03/13/2019 Age: 38 Gender: M HR: 62 bpm Height: 73 in /185.4 cm BSA: 2.3 m^2 Weight: 232.5 lb /105.7 kg BMI: 30.7 kg/m^2 *Product Design Specialist: * Kandy Richards [facility] *Referring Physician: * Jose Luis Xiong *Reading Physician: * Anjel Collins MD Indications: Abnormal EKG. History: Risk factors: Current tobacco use. ETOH use. Conclusions Summary: - Left ventricle: Systolic function is normal. The estimated ejection fraction is 55-60%. Wall motion is normal; there are no regional wall motion abnormalities. - Right ventricle: Systolic function is normal. - Mitral valve: There is trace regurgitation. - Aortic valve: There is no evidence of stenosis. There is no significant regurgitation. - Tricuspid valve: There is physiologic regurgitation. - Pericardium, extracardiac: There is no significant pericardial effusion. - Study data: No prior study is available for comparison. Study data: Transthoracic echocardiogram. Procedure: Transthoracic echocardiography was performed. Image quality was fair. Complete 2D, spectral Doppler, and color flow Doppler. Location: Procedure room. Patient status: Inpatient. Patient room number: 443-2. No prior study is available for comparison. Rhythm: Normal sinus rhythm. Findings Left ventricle: The cavity size is normal. There is mild concentric hypertrophy. Systolic function is normal. The estimated ejection fraction is 55-60%. Wall motion is normal; there are no regional wall motion abnormalities. There is no consistent Doppler evidence of clinically significant diastolic dysfunction. Right ventricle: The cavity size is mildly dilated. Systolic function is normal. Left atrium: The atrium is at the upper limits of normal in size. Right atrium: The atrium is normal in size. Mitral valve: The leaflets are mildly thickened. There is no evidence of stenosis. There is trace regurgitation. Aortic valve: The valve is trileaflet. The leaflets are normal thickness. There is no evidence of stenosis. There is no significant regurgitation. Tricuspid valve: The leaflets are normal thickness. There is no evidence of stenosis. There is physiologic regurgitation. Pulmonic valve: The leaflets are normal thickness. There is no evidence of stenosis. There is trace regurgitation. Aorta: Ascending aorta: The ascending aorta is appears normal. The aortic root appears normal. The aortic arch appears normal. Pericardium: There is no significant pericardial effusion. Pulmonary arteries: The main pulmonary artery is normal-sized. Systolic pressure can not be accurately estimated. Systemic veins: Inferior vena cava: The vessel is normal in size. There is (>= 50%) respiratory change in the IVC dimension. Measurements Left ventricle Value Ref Right atrium continued Value Ref TAO, LAX 5.3 cm 4.2 - 5.8 SI dim/bsa, ES, 2.2 cm/m^2 1.8 - ESD, LAX 3.7 cm 2.5 - 4.0 A4C 3.0 FS, LAX 30 % 25 - 43 Estimated RAP 3 mm Hg -------- PW, ED, LAX (H) 1.2 cm 0.6 - 1.0 FS 30 % 25 - 43 Aortic valve Value Ref PW, ED (H) 1.2 cm 0.6 - 1.0 Rocio diam, ED 2.1 cm -------- E', lat rocio, TDI 13.2 cm/sec >=10.0 Peak v, S 1.52 m/sec - ------- E/e', lat rocio, 6 VTI, S 25.2 cm ---- ---- TDI Mean grad, S 4.0 mm Hg -------- E', med rocio, TDI 7.7 cm/sec >=7.0 Peak grad, S 9.0 mm Hg - ------- E/e', med rocio, 10 LVOT/AV, VTI ratio 0.67 ---- ---- TDI E', avg, TDI 10.5 cm/sec Mitral valve Value Ref E/e', avg, TDI 7 <=14 Peak E 0.74 m/sec - ------- Peak A 0.49 m/sec -------- LVOT Value Ref Decel time 232 ms -------- Peak val, S 0.91 m/sec Peak grad, D 2.2 mm Hg -------- VTI, S 17.0 cm Peak E/A ratio 1.5 -------- Mean grad, S 2 mm Hg Pulmonic valve Value Ref Ventricular septum Value Ref Peak v, S 1.18 m/sec -------- IVS, ED (H) 1.3 cm 0.6 - 1.0 Peak grad, S 6.0 mm Hg -------- Right ventricle Value Ref Aortic root Value Ref TAO, LAX 3.0 cm Root diam 3.5 cm <4.4 TAO minor ax, (H) 4.6 cm 1.9 - 3.5 A4C mid Ascending aorta Value Ref AAo AP diam, S 3.3 cm -------- Left atrium Value Ref AP dim, ES 3.60 cm 3.00 - Aortic arch Value Ref 4.00 Arch diam 2.5 cm -------- ML dim, A4C 4.2 cm SI dim, A4C 5.8 cm Decending aorta Value Ref Vol/bsa, ES, 1-p 25 ml/m^2 12 - 37 Layo peak val 1.07 m/sec -------- A4C Vol/bsa, ES, A/L 32 ml/m^2 16 - 34 Inferior vena cava Value Ref Diam 1.7 cm -------- Right atrium Value Ref SI dim, ES 5.0 cm 3.4 - 5.3 ML dim, ES, A4C 4.2 cm 2.6 - 4.4 SI dim, ES, A4C 5.0 cm 3.4 - 5.3 Legend: (L) and (H) jaret values outside specified reference range. Prepared and electronically signed by Anjel Collins MD 03/13/2019 15:19
[2019-03-13] MEDS: Atorvastatin* 20 MG TAB PO SCH (17:25)
[2019-03-13] MEDS: Nicotine* 2MG (FRUIT FLAVOR) GUM PO PRN (21:54)
[2019-03-14 05:59] LABS: Potassium, Whole Blood 5.8 mmol/L (3.4-4.5)
[2019-03-14 06:05] LABS: Hematocrit 35 % (42-52); Hemoglobin 11.9 g/dL (14.0-18.0); Mean Corpuscular HGB Conc 34 g/dL (31-36); Mean Corpuscular Hemoglobin 30 pg (27-31); Mean Corpuscular Volume 89 fL (80-94); Mean Platelet Volume 10.5 fL (7.4-10.4); Platelet Count 109 10^3/uL (150-450); Red Blood Count 3.99 10^6 /uL (4.18-5.48); Red Cell Distribution Width 15 % (10-15); White Blood Count 3.9 10^3/uL (3.5-10.8)
[2019-03-14 06:34] LABS: Anion Gap 9 mmol/L (2-11); CO2 Carbon Dioxide 22 mmol/L (22-32); Calcium 8.7 mg/dL (8.6-10.3); Chloride 95 mmol/L (101-111); EGFR African American 116.1 (>60); EGFR Non-African American 95.9 (>60); Glucose 196 mg/dL (70-100); Sodium 126 mmol/L (135-145)
[2019-03-14] MEDS: Enoxaparin(*) 40 MG/0.4 ML SYR SUBCUT SCH (07:12)
[2019-03-14] MEDS ORDERED: Furosemide IV* 10 MG/ML VIAL (40 MG) IV ONE (07:17)
[2019-03-14] MEDS: Multivitamins/Minerals TAB PO SCH (07:52)
[2019-03-14] MEDS: Folic Acid TAB* 1 MG PO SCH (07:52)
[2019-03-14] MEDS: Thiamine TAB* 100 MG TAB PO SCH (07:52)
--- NOTE | 2019-03-14 08:32 | PN ---
Subjective Date of Service: 03/14/19 Interval History: Transferred from ICU yesterday. Had 8 second pause overnight on telemetry. Again with hyperkalemia. EKG without peaked T waves, but with ME over 200. Patient denies symptoms. Asks to go home but understands he still has acute medical issues. Objective Active Medications: Acetaminophen (Tylenol Tab*) 975 mg PO Q8H PRN PRN Reason: Pain - Mild to Moderate Last Admin: 03/14/19 08:49 Dose: 975 mg Atorvastatin Calcium (Lipitor*) 20 mg PO 1700 [facility] Last Admin: 03/14/19 17:08 Dose: 20 mg Fenofibrate (Tricor) 54 mg PO DAILY [facility] Last Admin: 03/14/19 07:51 Dose: 54 mg Fish Oil (Fish Oil (Nf)) 1,000 mg PO DAILY [facility]; Protocol Folic Acid (Folvite Tab*) 1 mg PO DAILY [facility] Last Admin: 03/14/19 07:52 Dose: 1 mg Cefazolin Sodium 2 gm/ Sodium (Chloride) 100 mls @ 200 mls/hr IVPB ONCE ONE Stop: 03/15/19 08:29 Sodium Chloride (Ns 0.9% 1000 Ml) 1,000 mls @ 75 mls/hr IV PER RATE [facility] Insulin Glargine (Lantus(*)) 50 units SUBCUT Q24H [facility] Last Admin: 03/14/19 08:50 Dose: 50 units Insulin Human Lispro (Humalog*) 0 units SUBCUT ACHS [facility]; Protocol Last Admin: 03/14/19 17:08 Dose: 4 unit Multivitamins/Minerals (Theragran/Minerals Tab*) 1 tab PO DAILY [facility] Last Admin: 03/14/19 07:52 Dose: 1 tab Nicotine Polacrilex (Nicotine Gum*) 2 mg PO Q2H PRN PRN Reason: CRAVING Last Admin: 03/13/19 21:54 Dose: 2 mg Thiamine HCl (Vitamin B-1 Tab*) 100 mg PO DAILY [facility] Last Admin: 03/14/19 07:52 Dose: 100 mg Oxygen Devices in Use Now: None Appearance: well appearing, NAD, alert and interactive Eyes: No Scleral Icterus Ears/Nose/Mouth/Throat: Clear Oropharnyx, Mucous Membranes Moist Neck: NL Appearance and Movements; NL JVP Respiratory: Symmetrical Chest Expansion and Respiratory Effort, Clear to Auscultation Cardiovascular: NL Sounds; No Murmurs; No JVD, RRR Abdominal: NL Sounds; No Tenderness; No Distention, No Hepatosplenomegaly Extremities: No Edema Skin: No Rash or Ulcers Neurological: Alert and Oriented x 3 Result Diagrams: 03/14/19 05:40 03/14/19 06:57 Additional Lab and Data: Lab Results 03/11/19 Range/Units 04:00 Urine Color Colorless Urine Appearance Clear Urine pH 5.0 (5-9) Ur Specific [place] 1.027 (1.010-1.030) Urine Protein Negative (Negative) Urine Ketones Trace A (Negative) Urine Blood Negative (Negative) Urine Nitrate Negative (Negative) Urine Bilirubin Negative (Negative) Urine Urobilinogen Negative (Negative) Ur Leukocyte Esterase Negative (Negative) Urine Glucose 3+(>=500 mg/dl) A (Negative) Microbiology and Other Data: Microbiology 03/11/19 07:46 Nasal Screen MRSA (PCR) - Final Nasal Mrsa Detected Assess/Plan/Problems-Billing 38M with history of etoh use disorder c/b hospitalization for acute pancreatitis , presents with R-flank pain and found with DKA and severe hypertriglyceridemia. Course complicated by difficult to control hyperglycemia, heart block, and lipemic blood complicating lab testing. - Patient Problems (1) Diabetes Comment: Hgb A1c 10%. New diagnosis. Possibly from decreased insulin production from chronic pancreatitis. Could also have component of insulin resistence. - cont insulin glargine 50u daily - cont ISS - consider Endo consult - nutrition consult ordered for dietary counseling, could also consider [facility] on discharge (2) Hypertriglyceridemia Comment: Had normal levels years ago. - some improvement with insulin, currently no indication for plasma exchange - on fenofibrate - holding off on niacin given possible side effects (increased blood glucose, myopathy when used with statin) - start DHA/EPA supplement - pt needs to completely avoid alcohol - avoid sugars, processed carbs (3) Hyperkalemia Comment: This may be due to lab errors. Patient has not had EKG changes. Kidney function normal and not on meds known to cause hyperkalemia. - s/p furosemide - cont to monitor (4) Diabetic ketoacidosis Comment: resolved (5) Heart block Comment: Elevated ME interval with frequent pauses. - apprecaite cardiology input - Lyme test pending - cont on tele (6) DVT (deep venous thrombosis) Current Visit: Yes Status: Acute Code(s): I82.409 - ACUTE EMBOLISM AND THOMBOS UNSP DEEP VN UNSP LOWER EXTREMITY SNOMED Code(s): 849486906 Comment: pt ambulatory. leonard FLORES'ed as cardiology considering PPM.
[2019-03-14] MEDS: Acetaminophen TAB* 325 MG PO PRN ×3 (08:49→23:02)
[2019-03-14] MEDS: Insulin LISPRO* 1 UNITS UNIT SUBCUT SCH ×4 (08:50→21:32)
[2019-03-14] MEDS: Insulin GLARGINE(*) 1 UNITS UNIT SUBCUT SCH (08:50)
[2019-03-14 10:42] LABS: INR 1.04 (0.82-1.09)
--- NOTE | 2019-03-14 13:28 | CONS ---
CC: Dr. Soliz; Dr. Mcdermott* CONSULTATION REPORT: DATE OF CONSULT: 03/14/19. REASON FOR CONSULTATION: High-degree AV block. ATTENDING CLINICAL AUDITOR: Dr. Katty Mcdermott* (dictated by Skylar Lilly NP). PRIMARY CLINICAL AUDITOR: None. PRIMARY PHYSICIAN: Dr. Soliz. CHIEF COMPLAINT: Polyuria, polydipsia, flank pain, dry mouth. HISTORY OF PRESENT ILLNESS: This is a pleasant 38-year-old male patient with a notable history of ongoing alcoholism, pancreatitis in 2013, newly diagnosed uncontrolled diabetes, hypertension, and hypertriglyceridemia, who presented to [facility] on 03/11/19 due to complaints of increased urination, dry mouth, and flank pain. While being evaluated, the patient was found to be in diabetic ketoacidosis, thus was admitted to the ICU. On 03/11/19, on telemetry after review, it appears that the patient had an episode of third-degree heart block at 8:27 p.m. Upon review of chemistry, it appears at that time potassium was around 5.1. Since then, he has had multiple episodes on 03/12/19 at 0437, there was a brief period of high-degree heart block. The patient had a period around 1132 on 03/12/19 as well and most recently around 0344 on 03/14/19, the patient had an 8.25-second period of ventricular standstill. Apparently, the patient was sleeping and not symptomatic. He states he was not aware of any of these episodes after review of them with him. The patient does admit to using cocaine Tuesday evening. He denies being on medications at home. He denies chest pain, apparently remotely he had an episode where he fainted, but he had "I think I was wearing a hot sweater and it was warm out or something." He states that he was recently incarcerated in December, during that time, he did withdraw from alcohol and when he got out of prison, he did resume drinking half liter of rum a day. Apparently, since being released from prison near the end of January, he has been noticing abdominal distention, dyspnea on exertion, but again no syncope or chest pain. We are asked to see the patient in consultation due to 8.25 seconds episode of ventricular standstill this morning. The patient offers no other complaints. Last echocardiogram was 03/13/19, per report LVEF 55% to 60% normal wall motion , trace mitral regurgitation. PAST MEDICAL HISTORY: 1. Newly diagnosed hypertriglyceridemia. 2. Newly diagnosed diabetes. 3. Newly diagnosed hypertension. 4. Pancreatitis. 5. Alcoholism. 6. Thrombocytopenia. PAST SURGICAL HISTORY: None. HOME MEDICATIONS: None. ALLERGIES: No known drug allergies. Denies allergy to contrast dye or shellfish. FAMILY HISTORY: He reports his father due to complications from myocardial infarction at age 64, otherwise noncontributory. 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 He is engaged and has 4 children, ages range from 3 to 21. He also cares for his mother, who resides with him. He uses marijuana occasionally, reports occasional cocaine use, most recently was on 03/09/19. He smokes half a pack of cigarettes a day for last 15 years. He consumes half liter of rum every other day. REVIEW OF SYSTEMS: All systems have been reviewed and otherwise is negative except as above mentioned in the HPI. PHYSICAL EXAMINATION: Temperature 98.2, pulse 72, respirations 16, oxygenation 100% on room air, blood pressure 148/100. General: The patient was lying in bed, watching TV upon entering the room. Appears in no apparent distress. Cooperative with examination. A and O x3. HEENT: Head is atraumatic and normocephalic. Oral mucosa is moist. Tongue is midline. Neck: Supple, trachea midline, no JVD, no carotid bruits. Cardiac: Normal S1, S2. Regular rate and rhythm. No murmur, rub, or gallop noted. Lungs: Auscultated posteriorly, no evidence of adventitious breath sounds. Respirations nonlabored. /GI: Abdomen is distended, nontender. Normoactive bowel sounds x4. No hepatomegaly to palpation. Extremities: No pedal edema. No clubbing or cyanosis. Peripheral Vascular: 2+ brachial and dorsalis pedis pulses palpated bilaterally and symmetrically. Skin: Intact. No evidence of jaundice , rashes, or ecchymosis appreciated. DIAGNOSTIC STUDIES/LAB DATA: Blood work reviewed this morning, chemistry: Sodium 126, whole blood potassium 5.8, chloride 95, carbon dioxide 22, BUN 19, creatinine 0.88, glucose 196, troponin is currently pending, triglycerides during this admission were 7102 on 03/11/19. Lipase was 156 on 03/11/19. Coagulopathy is pending. White count today 3.9, hemoglobin 11.9, hematocrit 35 , platelets 109. 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 UA reviewed, positive for ketones with 3+ glucose. ECG from 03/14/19 reviewed, sinus rhythm, rate 68, IN interval was 205. Nonspecific T-wave abnormalities in lead 3 and aVF. Telemetry reviewed with Dr. Katty Mcdermott. It appears the patient has had intermittent periods of third-degree heart block dating back to 8 p.m. on with an 8.25-second episode of ventricular standstill at 0400 this morning. ASSESSMENT AND PLAN: 1. High-degree atrioventricular block with an 8.25-second episode of ventricular standstill at 0400 03/14/19. The patient is asymptomatic. The patient did report an apparent bug bite 2 months ago, apparently the patient plays outside frequently with his young children. He still has a residual scar on his shoulder from bite, thus we will rule out Lyme disease. The patient denies chest pain, although he has substantial risk factors for coronary disease including premature coronary disease in first-degree relative, newly diagnosed hypertension, uncontrolled diabetes, ongoing tobacco abuse, thus, we will check troponin. Avoid atrioventricular aleks agents. Continue to monitor on telemetry. We will consider device implantation depending upon Lyme testing and follow closely. Echocardiogram revealed normal wall motion. 2. Newly diagnosed hypertension, recommend blood pressure less than 130/80 given history of diabetes. Unfortunately, due to high-degree atrioventricular block and ventricular standstill, not able to tolerate atrioventricular aleks agents at this time. Consider STEPHANI inhibitor therapy given newly diagnosed diabetes. 3. Newly diagnosed diabetes with ketoacidosis at presentation. Defer to primary team. 4. History of hypertriglyceridemia. We will initiate Vascepa 2 g b.i.d. 5. Disposition. Pending course. The patient is full code. We will await Lyme testing, coag panel, initiate Vascepa for elevated triglycerides and follow closely. Dr. Katty Mcdermott has personally seen and examined the patient, agreed with the above plan. Thank you for this kind consultation. Any future questions or concerns, please do not hesitate to contact our practice. SKYLAR LILLY NP [id number]/[facility] #: [id number] [facility] CENTERMirian
[2019-03-14] MEDS: Atorvastatin* 20 MG TAB PO SCH (17:08)
--- NOTE | 2019-03-14 20:21 | HP ---
H&P (Free Text) History and Physical: see full dictated consultation by HEAD IRRIGATOR Skylar Lilly. 38 yo with hx substance abuse including cocaine admitted with DKA. Rhythm strips show 3rd degree HB. No dizziness or syncope. 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 Pt plays outside with his kids in a area of [place] with lots of deer/ticks. Exam: Fit middle aged male, NAD Skin right posterior shoulder 3-4 mm dot of dark discoloration. Clear lungs No murmurs. Good distal pulses. Grossly normal neurological exam. A/P 38 yo with intermittent asymptomatic 3rd degree HB, possible Lyme. Lyme titre pending. If Lyme negative, needs pacer. If Lyme positive, can treat and watch on a monitor and see if HB resolves, decide on pacer implant later. In the interim I recommend empiric ceftriaxone or other antibiotic for Lyme. Needs evaluation for CAD as well, see dictated H+P.
[2019-03-14] MEDS: CMCS:OMEGA-3 FATTY ACIDS (NF) 1,000 MG CAP PO SCH (21:43)
[2019-03-15] MEDS ORDERED: NS 0.9% 1000 ML** 1,000 ML IV SCH (06:00)
[2019-03-15 07:07] LABS: Anion Gap 9 mmol/L (2-11); CO2 Carbon Dioxide 23 mmol/L (22-32); Chloride 95 mmol/L (101-111); Cholesterol 604 mg/dL; EGFR African American 93.6 (>60); EGFR Non-African American 77.4 (>60); Glucose 213 mg/dL (70-100); HDL Cholesterol 17.9 mg/dL; Magnesium 3.7 mg/dL (1.9-2.7); Sodium 127 mmol/L (135-145)
[2019-03-15 07:20] LABS: BUN/Creatinine Ratio 17.9 (8-20); Blood Urea Nitrogen 19 mg/dL (6-24); Triglycerides 3891 mg/dL
[2019-03-15 07:37] LABS: LDL Cholesterol Direct 74 mg/dL
[2019-03-15] MEDS ORDERED: ceFAZolin VIAL(*) 2 GM in NS 0.9% 100 ML* 100 ML IVPB ONE (08:00)
[2019-03-15] MEDS: CMCS:OMEGA-3 FATTY ACIDS (NF) 1,000 MG CAP PO SCH (08:42)
[2019-03-15] MEDS: Folic Acid TAB* 1 MG PO SCH (08:42)
[2019-03-15] MEDS: Insulin GLARGINE(*) 1 UNITS UNIT SUBCUT SCH (08:43)
[2019-03-15] MEDS: Multivitamins/Minerals TAB PO SCH (08:43)
[2019-03-15] MEDS: Insulin LISPRO* 1 UNITS UNIT SUBCUT SCH ×2 (08:43→12:02)
[2019-03-15] MEDS: Thiamine TAB* 100 MG TAB PO SCH (08:43)
[2019-03-15 08:58] LABS: Albumin 4.8 g/dL (3.2-5.2); Albumin/Globulin Ratio 2.1 (1-3); Alkaline Phosphatase 30 U/L (34-104); Globulin 2.3 g/dL (2-4); Total Protein 7.1 g/dL (6.4-8.9)
[2019-03-15 09:10] LABS: ALT 61 U/L (7-52)
--- NOTE | 2019-03-15 11:57 | PN ---
Subjective Date of Service: 03/15/19 - CC 3rd degree HB Interval History: no new c/o not dizzy. Medications Active Medications: Acetaminophen (Tylenol Tab*) 975 mg PO Q8H PRN PRN Reason: Pain - Mild to Moderate Last Admin: 03/14/19 23:02 Dose: 975 mg Atorvastatin Calcium (Lipitor*) 20 mg PO 1700 [facility] Last Admin: 03/14/19 17:08 Dose: 20 mg Fenofibrate (Tricor) 54 mg PO DAILY [facility] Last Admin: 03/15/19 08:42 Dose: 54 mg Fish Oil (Fish Oil (Nf)) 1,000 mg PO DAILY [facility]; Protocol Last Admin: 03/15/19 08:42 Dose: 1,000 mg Folic Acid (Folvite Tab*) 1 mg PO DAILY [facility] Last Admin: 03/15/19 08:42 Dose: 1 mg Cefazolin Sodium 2 gm/ Sodium (Chloride) 100 mls @ 200 mls/hr IVPB ONCE@0800 ONE Stop: 03/16/19 08:29 Sodium Chloride (Ns 0.9% 1000 Ml) 1,000 mls @ 75 mls/hr IV PER RATE [facility] Insulin Glargine (Lantus(*)) 50 units SUBCUT Q24H [facility] Last Admin: 03/15/19 08:43 Dose: 50 units Insulin Human Lispro (Humalog*) 0 units SUBCUT ACHS [facility]; Protocol Last Admin: 03/15/19 08:43 Dose: 6 unit Multivitamins/Minerals (Theragran/Minerals Tab*) 1 tab PO DAILY [facility] Last Admin: 03/15/19 08:43 Dose: 1 tab Nicotine Polacrilex (Nicotine Gum*) 2 mg PO Q2H PRN PRN Reason: CRAVING Last Admin: 03/13/19 21:54 Dose: 2 mg Thiamine HCl (Vitamin B-1 Tab*) 100 mg PO DAILY [facility] Last Admin: 03/15/19 08:43 Dose: 100 mg Objective Vital Signs: Temp Pulse Resp BP Pulse Ox 97.4 F 74 20 123/83 100 03/15/19 11:15 03/15/19 11:15 03/15/19 11:15 03/15/19 11:15 03/15/19 11:15 Oxygen Devices in Use Now: None Appearance: fit middle aged male, walking in room Eyes: No Scleral Icterus, PERRLA Ears/Nose/Mouth/Throat: Clear Oropharnyx, Mucous Membranes Moist Neck: NL Appearance and Movements; NL JVP, No Thyroid Enlargement, Masses Respiratory: Symmetrical Chest Expansion and Respiratory Effort, Clear to Auscultation Cardiovascular: RRR Abdominal: NL Sounds; No Tenderness; No Distention Extremities: No Edema, No Clubbing, Cyanosis Skin: No Rash or Ulcers Neurological: Alert and Oriented x 3, NL Muscle Strength and Tone Lines/Tubes/Other Access: Clean, Dry and Intact Peripheral IV Laboratory Results: 03/14/19 05:40 03/15/19 06:09 INR (Anticoag Therapy) 1.04 (0.82-1.09) 03/14/19 10:15 Total Bilirubin 0.50 mg/dL (0.2-1.0) 03/15/19 06:09 Direct Bilirubin 0.00 mg/dL (0.03-0.18) L 03/15/19 06:09 Indirect Bilirubin Not Reportable 03/15/19 06:09 AST TNP 03/15/19 06:09 ALT 61 U/L (7-52) H 03/15/19 06:09 Alkaline Phosphatase 30 U/L (34-104) L 03/15/19 06:09 Total Protein 7.1 g/dL (6.4-8.9) 03/15/19 06:09 Albumin 4.8 g/dL (3.2-5.2) 03/15/19 06:09 Globulin 2.3 g/dL (2-4) 03/15/19 06:09 Albumin/Globulin Ratio 2.1 (1-3) 03/15/19 06:09 Triglycerides 3891 mg/dL 03/15/19 06:09 Cholesterol 604 mg/dL 03/15/19 06:09 LDL Cholesterol mg/dL 03/15/19 06:09 HDL Cholesterol 17.9 mg/dL 03/15/19 06:09 TSH 0.60 mcIU/mL (0.34-5.60) 03/12/19 06:45 03/14/19 03/14/19 10:09 19:54 Troponin I 0.00 0.00 serology negative for Lyme EKG Data: 8 second pause last night o telemetry Assessment/Plan 38 yo admitted with DKA, 3rd egree HB intermittently. Lyme negative. Pacer in AM, risks+benefits reviewed. Procedure details reviewed.
[2019-03-15] MEDS: Acetaminophen TAB* 325 MG PO PRN ×2 (12:03→19:29)
--- NOTE | 2019-03-15 12:43 | CONSULT ---
Consult Consult: [facility] Inpatient Consult Note Date of Consult: 03/15/19 Reason for Consult: hypertriglyceridemia, DKA Reason for Admission: DKA, heart block ASSESSMENT: 38 yo M with history of alcoholic pancreatitis in 2013, now presenting with first-time DKA and newly-recognized diabetes. Metabolic decompensation was likely caused by many factors, including alcohol and cocaine abuse, uncontrolled hyperglycemia and pancreatic insufficiency. He has had a partial response to "basal plus" insulin regimen this admission after discontinuation of IV insulin, but remains moderately hyperglycemia with severe hypertriglyceridemia. He will need to use insulin in the coming weeks to control these. His insulin requirement is approximately 0.6 units/kg/day, which should be given as a 5-shot regular + NPH insulin regimen, as below, and can be consolidated to 70/30 insulin for ease of administration after discharge. PLAN: - d/c glargine insulin - d/c lispro insulin - start regular insulin 15 units with meals - add 3 units if BG>200, 6 units if BG>300, 9 units if BG>400 - start NPH insulin 10 units twice daily in addition to above - if BG <180 on the above R/N insulin regimen, change to 70/30 insulin twice daily at discharge - change to low-fat diet - check C-peptide with AM labs - fingerstick monitoring and insulin injection teaching per floor nurses SUBJECTIVE: History of Present Illness: 38 yo M with history of pancreatitis, now presenting with severe, acute, ketosis-prone diabetes and heart block in setting of substance use. He was in his usual state of fair health until recently, when he started experiencing significant polyuria/polydipsia and weight loss despite increased fluid and food intake. He presented with nausea, vomiting and dehydration on 03/11/19 and was found to be in DKA, which was treated with IV insulin. During this hospital stay, he made a rapid recovery from metabolic crisis, but was found to have high-grade heart block. Past Medical History: 1. Alcohol use disorder 2. Alcoholic pancreatitis, 2013 3. Substance use disorder Medications Prior to Admission: NK [No Home Medications Reported] 03/28/14 [History Confirmed 03/11/19] Inpatient Medications: Acetaminophen (Tylenol Tab*) 975 mg PO Q8H PRN PRN Reason: Pain - Mild to Moderate Last Admin: 03/15/19 12:03 Dose: 975 mg Atorvastatin Calcium (Lipitor*) 20 mg PO 1700 [facility] Last Admin: 03/14/19 17:08 Dose: 20 mg Fenofibrate (Tricor) 54 mg PO DAILY [facility] Last Admin: 03/15/19 08:42 Dose: 54 mg Fish Oil (Fish Oil (Nf)) 1,000 mg PO DAILY [facility]; Protocol Last Admin: 03/15/19 08:42 Dose: 1,000 mg Folic Acid (Folvite Tab*) 1 mg PO DAILY [facility] Last Admin: 03/15/19 08:42 Dose: 1 mg Cefazolin Sodium 2 gm/ Sodium (Chloride) 100 mls @ 200 mls/hr IVPB ONCE@0800 ONE Stop: 03/16/19 08:29 Sodium Chloride (Ns 0.9% 1000 Ml) 1,000 mls @ 75 mls/hr IV PER RATE [facility] Insulin Glargine (Lantus(*)) 50 units SUBCUT Q24H [facility] Last Admin: 03/15/19 08:43 Dose: 50 units Insulin Human Lispro (Humalog*) 0 units SUBCUT ACHS [facility]; Protocol Last Admin: 03/15/19 12:02 Dose: 8 unit Multivitamins/Minerals (Theragran/Minerals Tab*) 1 tab PO DAILY [facility] Last Admin: 03/15/19 08:43 Dose: 1 tab Nicotine Polacrilex (Nicotine Gum*) 2 mg PO Q2H PRN PRN Reason: CRAVING Last Admin: 03/13/19 21:54 Dose: 2 mg Thiamine HCl (Vitamin B-1 Tab*) 100 mg PO DAILY [facility] Last Admin: 03/15/19 08:43 Dose: 100 mg Allergies/Intolerances: NKDA Social History: Heavy alcohol and moderate drug use (cocaine, marijuana). Lives with mother, girlfriend and three school-age children. Family History: Multiple family members with diabetes. Review of Systems: As above. 10 system review is otherwise normal. OBJECTIVE: Temp Pulse Resp BP Pulse Ox 96.8 F 64 16 105/77 100 03/16/19 03:44 03/16/19 03:44 03/16/19 03:44 03/16/19 03:44 03/16/19 03:44 General: alert, pleasant, oriented, no distress ENT: neck supple, no thyromegaly, no bruit is heard Chest: CTAB, no wheezing or crackles CV: RRR, no murmur Abdomen: soft, non-tender Extremities: no edema, distal pulses intact Skin: warm, dry, no rash Neuro: grossly intact motor/sensory in extremities Psych: restricted affect, pleasant Labs: WBC 3.9 10^3/uL (3.5-10.8) 03/14/19 05:40 RBC 3.99 10^6 /uL (4.18-5.48) L 03/14/19 05:40 Hgb 11.9 g/dL (14.0-18.0) L 03/14/19 05:40 Hct 35 % (42-52) L 03/14/19 05:40 MCV 89 fL (80-94) 03/14/19 05:40 MCH 30 pg (27-31) 03/14/19 05:40 MCHC 34 g/dL (31-36) 03/14/19 05:40 RDW 15 % (10-15) 03/14/19 05:40 Plt Count 109 10^3/uL (150-450) L 03/14/19 05:40 MPV 10.5 fL (7.4-10.4) H 03/14/19 05:40 Neut % (Auto) Not Reportable 03/11/19 04:34 Lymph % (Auto) Not Reportable 03/11/19 04:34 Levy % (Auto) Not Reportable 03/11/19 04:34 Eos % (Auto) Not Reportable 03/11/19 04:34 Baso % (Auto) Not Reportable 03/11/19 04:34 Absolute Neuts (auto) 1.8 10^3/ul (1.5-7.7) 03/11/19 04:34 Absolute Lymphs (auto) 1.5 10^3/ul (1.0-4.8) 03/11/19 04:34 Absolute Monos (auto) 0.4 10^3/ul (0-0.8) 03/11/19 04:34 Absolute Eos (auto) 0.2 10^3/ul (0-0.6) 03/11/19 04:34 Absolute Basos (auto) Not Reportable 03/11/19 04:34 Absolute Nucleated RBC Not Reportable 03/11/19 04:34 Neutrophils % 45.0 % 03/11/19 04:34 Lymphocytes % 39.0 % 03/11/19 04:34 Monocytes % 11.0 % 03/11/19 04:34 Eosinophils % 5.0 % 03/11/19 04:34 Nucleated RBC % Not Reportable 03/11/19 04:34 Normal RBC Morphology Normal (Normal) 03/11/19 04:34 INR (Anticoag Therapy) 1.04 (0.82-1.09) 03/14/19 10:15 ABG pH 7.36 (7.35-7.45) 03/11/19 06:24 ABG pCO2 39 mmHg (35-45) 03/11/19 06:24 ABG pO2 88 mmHg (80-100) 03/11/19 06:24 ABG HCO3 22.5 mmol/L (19-31) 03/11/19 06:24 ABG O2 Saturation TNP 03/11/19 06:24 ABG Base Excess -3.1 mmol/L (-2.0-2.0) L 03/11/19 06:24 Sodium 127 mmol/L (135-145) L 03/15/19 06:09 Whole Bld Sodium 132 mmol/L (136-145) L 03/14/19 05:40 Potassium TNP 03/15/19 06:09 Whole Bld Potassium 5.8 mmol/L (3.4-4.5) H 03/14/19 05:40 Chloride 95 mmol/L (101-111) L 03/15/19 06:09 Whole Bld Chloride 102 mmol/L (98-107) 03/14/19 05:40 Carbon Dioxide 23 mmol/L (22-32) 03/15/19 06:09 Anion Gap 9 mmol/L (2-11) 03/15/19 06:09 BUN 19 mg/dL (6-24) 03/15/19 06:09 Creatinine 1.06 mg/dL (0.67-1.17) 03/15/19 06:09 Est GFR ( Amer) 93.6 (>60) 03/15/19 06:09 Est GFR (Non-Af Amer) 77.4 (>60) 03/15/19 06:09 BUN/Creatinine Ratio 17.9 (8-20) 03/15/19 06:09 Glucose 213 mg/dL (70-100) H 03/15/19 06:09 POC Glucose (mg/dL) 333 mg/dL (70-100) H 03/15/19 11:27 Hemoglobin A1c 10.7 % (4.0-5.6) H 03/12/19 15:27 Lactic Acid 1.3 mmol/L (0.5-2.0) 03/11/19 04:34 Calcium 9.0 mg/dL (8.6-10.3) 03/15/19 06:09 Phosphorus 3.6 mg/dL (2.5-5.0) 03/11/19 13:52 Magnesium 3.7 mg/dL (1.9-2.7) H 03/15/19 06:09 Total Bilirubin 0.50 mg/dL (0.2-1.0) 03/15/19 06:09 Direct Bilirubin 0.00 mg/dL (0.03-0.18) L 03/15/19 06:09 Indirect Bilirubin Not Reportable 03/15/19 06:09 AST TNP 03/15/19 06:09 ALT 61 U/L (7-52) H 03/15/19 06:09 Alkaline Phosphatase 30 U/L (34-104) L 03/15/19 06:09 Lactate Dehydrogenase TNP 03/15/19 06:09 Troponin I 0.00 ng/mL (<0.04) 03/14/19 19:54 Total Protein 7.1 g/dL (6.4-8.9) 03/15/19 06:09 Albumin 4.8 g/dL (3.2-5.2) 03/15/19 06:09 Globulin 2.3 g/dL (2-4) 03/15/19 06:09 Albumin/Globulin Ratio 2.1 (1-3) 03/15/19 06:09 Triglycerides 3891 mg/dL 03/15/19 06:09 Cholesterol 604 mg/dL 03/15/19 06:09 LDL Cholesterol mg/dL 03/15/19 06:09 LDL Cholesterol Direct 74 mg/dL 03/15/19 06:09 HDL Cholesterol 17.9 mg/dL 03/15/19 06:09 Lipase 125 U/L (11.0-82.0) H 03/11/19 13:52 TSH 0.60 mcIU/mL (0.34-5.60) 03/12/19 06:45 Free T4 0.90 ng/dL (0.61-1.12) 03/12/19 14:22 Free T3 3.40 pg/mL (2.5-3.9) 03/12/19 14:22 Urine Color Colorless 03/11/19 04:00 Urine Appearance Clear 03/11/19 04:00 Urine pH 5.0 (5-9) 03/11/19 04:00 Ur Specific [place] 1.027 (1.010-1.030) 03/11/19 04:00 Urine Protein Negative (Negative) 03/11/19 04:00 Urine Ketones Trace (Negative) A 03/11/19 04:00 Urine Blood Negative (Negative) 03/11/19 04:00 Urine Nitrate Negative (Negative) 03/11/19 04:00 Urine Bilirubin Negative (Negative) 03/11/19 04:00 Urine Urobilinogen Negative (Negative) 03/11/19 04:00 Ur Leukocyte Esterase Negative (Negative) 03/11/19 04:00 Urine Osmolality 599 mOsm/kg (100-1150) 03/11/19 06:19 U Sodium Concentration 23 mmol/L 03/11/19 06:19 Urine Glucose 3+(>=500 mg/dl) (Negative) A 03/11/19 04:00 Lyme Total Antibody Negative (Negative) 03/14/19 10:10 HIV 1&2 Ab/P24 Ag 4thGn Nonreactive (Nonreactive) 03/11/19 04:35
--- NOTE | 2019-03-15 15:47 | PN ---
Subjective Date of Service: 03/15/19 Interval History: Overnight, another 8s pause noted. Pt had no complain of chest pain, SOB, dizziness. Noted glucose trend 271-333. Objective Active Medications: Acetaminophen (Tylenol Tab*) 975 mg PO Q8H PRN PRN Reason: Pain - Mild to Moderate Last Admin: 03/15/19 12:03 Dose: 975 mg Atorvastatin Calcium (Lipitor*) 20 mg PO 1700 [facility] Last Admin: 03/14/19 17:08 Dose: 20 mg Fenofibrate (Tricor) 54 mg PO DAILY [facility] Last Admin: 03/15/19 08:42 Dose: 54 mg Fish Oil (Fish Oil (Nf)) 1,000 mg PO DAILY [facility]; Protocol Last Admin: 03/15/19 08:42 Dose: 1,000 mg Folic Acid (Folvite Tab*) 1 mg PO DAILY [facility] Last Admin: 03/15/19 08:42 Dose: 1 mg Cefazolin Sodium 2 gm/ Sodium (Chloride) 100 mls @ 200 mls/hr IVPB ONCE@0800 ONE Stop: 03/16/19 08:29 Sodium Chloride (Ns 0.9% 1000 Ml) 1,000 mls @ 75 mls/hr IV PER RATE [facility] Insulin Glargine (Lantus(*)) 50 units SUBCUT Q24H [facility] Last Admin: 03/15/19 08:43 Dose: 50 units Insulin Human Lispro (Humalog*) 0 units SUBCUT ACHS [facility]; Protocol Last Admin: 03/15/19 12:02 Dose: 8 unit Multivitamins/Minerals (Theragran/Minerals Tab*) 1 tab PO DAILY [facility] Last Admin: 03/15/19 08:43 Dose: 1 tab Nicotine Polacrilex (Nicotine Gum*) 2 mg PO Q2H PRN PRN Reason: CRAVING Last Admin: 03/13/19 21:54 Dose: 2 mg Thiamine HCl (Vitamin B-1 Tab*) 100 mg PO DAILY [facility] Last Admin: 03/15/19 08:43 Dose: 100 mg Vital Signs - 8 hr 03/15/19 11:15 Temperature 97.4 F Pulse Rate 74 Respiratory 20 Rate Blood Pressure 123/83 (mmHg) O2 Sat by Pulse 100 Oximetry Oxygen Devices in Use Now: None Exam: General - NAD, sitting up in bed, well groomed Eyes - PERRLA, EOM intact HEENT- no abnormality Cardiovascular - RRR no m/r/g, no JVD, no carotid bruits Lungs - Clear to auscltation, no use of acessory muscles, no crackles or wheezes. Skin - No rashes, skin warm and dry, no erythematous areas Abdomen - Normal bowel sounds, abdomen soft and nontender Extremeties - No edema, cyanosis or clubbing Musculo Skeletal - 5/5 strength, normal range of motion, no swollen or erythematous joints. Neurological Alert and oriented x 3, CN 2-12 grossly intact. Psychiatry- mood stable Result Diagrams: 03/14/19 05:40 03/15/19 06:09 Additional Lab and Data: Lab Results 03/11/19 Range/Units 04:00 Urine Color Colorless Urine Appearance Clear Urine pH 5.0 (5-9) Ur Specific [place] 1.027 (1.010-1.030) Urine Protein Negative (Negative) Urine Ketones Trace A (Negative) Urine Blood Negative (Negative) Urine Nitrate Negative (Negative) Urine Bilirubin Negative (Negative) Urine Urobilinogen Negative (Negative) Ur Leukocyte Esterase Negative (Negative) Urine Glucose 3+(>=500 mg/dl) A (Negative) Microbiology and Other Data: Microbiology 03/11/19 07:46 Nasal Screen MRSA (PCR) - Final Nasal Mrsa Detected Assess/Plan/Problems-Billing 38M with history of etoh use disorder c/b hospitalization for acute pancreatitis , presents with R-flank pain and found with DKA and severe hypertriglyceridemia. Course complicated by difficult to control hyperglycemia, heart block, and lipemic blood complicating lab testing. - Patient Problems (1) Diabetes Current Visit: Yes Status: Acute Code(s): E11.9 - TYPE 2 DIABETES MELLITUS WITHOUT COMPLICATIONS SNOMED Code(s): 34793574 Comment: - Hgb A1c 10%. New diagnosis. Possibly from decreased insulin production from chronic pancreatitis. Could also have component of insulin resistence. - endocrine consult today - follow insulin regimen recommended by endocrine (2) Diabetic ketoacidosis Current Visit: Yes Status: Acute Code(s): E11.10 - TYPE 2 DIABETES MELLITUS WITH KETOACIDOSIS WITHOUT COMA SNOMED Code(s): 822743341 Comment: Ag closed 03/13/2019, resolved trigerred by Etoh, substance use (3) Heart block Current Visit: Yes Status: Acute Code(s): I45.9 - CONDUCTION DISORDER, UNSPECIFIED SNOMED Code(s): 664114194 Comment: Elevated TN interval with frequent pauses. - Lyme test neg - cont on tele - plan for pacemaker tomorrow (4) Hyperkalemia Current Visit: Yes Status: Acute Code(s): E87.5 - HYPERKALEMIA SNOMED Code (s): 41692507 Comment: Patient has not had EKG changes. Kidney function normal and not on meds known to cause hyperkalemia. - s/p furosemide - cont to monitor - checked with lab, electrode method was used (named as whole blood potassium) instead of usual optic method (5) Hypertriglyceridemia Current Visit: Yes Status: Acute Code(s): E78.1 - PURE HYPERGLYCERIDEMIA SNOMED Code(s): 392551330 Comment: Had normal levels years ago. - some improvement with insulin, currently no indication for plasma exchange - on fenofibrate, statin, DHA/EPA supplement - holding off on niacin given possible side effects (increased blood glucose, myopathy when used with statin) - pt needs to completely avoid alcohol - avoid sugars, processed carbs (6) DVT (deep venous thrombosis) Current Visit: Yes Status: Acute Code(s): I82.409 - ACUTE EMBOLISM AND THOMBOS UNSP DEEP VN UNSP LOWER EXTREMITY SNOMED Code(s): 402262757 Comment: pt ambulatory. lovenox DC'ed as PPM tomorrow Status and Disposition: Inpatient Medicine Attestation Documenting Resident: Francesca Williamson Supervising Physician: Chinmay Sage Attending/Supervising Physician Comment: Agree with plan as outlined in note from Dr. Williamson unless indicated Check whole blood potassium in AM to get accurate read Plan on PPM given repeat pauses Counseled diet and alcohol cessation Attestation: This service has been performed in part by a resident under the direction of a teaching physician.I, Chinmay Sage, performed the service, or was physically present during the critical, or lopez portions of the service, furnished by the resident. I participated in the management of the patient.
[2019-03-15] MEDS: Atorvastatin* 20 MG TAB PO SCH (16:53)
[2019-03-15] MEDS: Insulin REGULAR(*) 1 UNITS UNIT SUBCUT SCH (17:14)
[2019-03-16 05:47] LABS: Hematocrit 36 % (42-52); Hemoglobin 11.9 g/dL (14.0-18.0); Mean Corpuscular HGB Conc 33 g/dL (31-36); Mean Corpuscular Hemoglobin 30 pg (27-31); Mean Corpuscular Volume 90 fL (80-94); Platelet Count 114 10^3/uL (150-450); Red Blood Count 3.97 10^6 /uL (4.18-5.48); Red Cell Distribution Width 16 % (10-15); White Blood Count 4.5 10^3/uL (3.5-10.8)
[2019-03-16 05:59] LABS: Potassium, Whole Blood 4.3 mmol/L (3.4-4.5)
[2019-03-16 06:03] LABS: CO2 Carbon Dioxide 24 mmol/L (22-32); Calcium 9.1 mg/dL (8.6-10.3); Chloride 97 mmol/L (101-111); EGFR African American 106.2 (>60); EGFR Non-African American 87.8 (>60); Glucose 137 mg/dL (70-100); Sodium 131 mmol/L (135-145)
[2019-03-16 06:11] LABS: BUN/Creatinine Ratio 16.8 (8-20); Blood Urea Nitrogen 16 mg/dL (6-24)
[2019-03-16] MEDS: NS 0.9% 1000 ML** 1,000 ML IV SCH (06:16)
[2019-03-16 06:20] LABS: ABS Basophils 0.1 10^3/ul (0-0.2); ABS Eosinophils 0.2 10^3/ul (0-0.6); ABS Lymphocytes 2.2 10^3/ul (1.0-4.8); ABS Monocytes 0.4 10^3/ul (0-0.8); ABS Neutrophils 1.6 10^3/ul (1.5-7.7); Large Platelets Present; Lymphocyte % 48.6 %; Nucleated Red Blood Cells % 0.7
[2019-03-16] MEDS ORDERED: Lidocaine 1% INJ* 10 MG/ML 30 ML SDV ONE (06:52)
[2019-03-16] MEDS ORDERED: Iohexol 300* (CONTRAST) 10 ML SDV ONE (07:08)
[2019-03-16] MEDS ORDERED: fentaNYL* 50 MCG/ML 2 ML VIAL (100 MCG VIAL) ONE (07:09)
[2019-03-16] MEDS ORDERED: Midazolam* 1 MG/ML 5 ML VIAL (5 MG) ONE ×2 (07:09→07:32)
[2019-03-16] MEDS ORDERED: ceFAZolin VIAL(*) 2 GM in NS 0.9% 100 ML* 100 ML IVPB ONE (08:00)
--- NOTE | 2019-03-16 08:39 | OP ---
Operative Report - Blank - Operative Report Date of Operation: 03/16/19 - Pre op dx: 3rd degree heart block Note: Pt s/p Dual chamber pacemaker implantation. OPENLANE MRI compatable device. Left shoulder Anaesthesia: 5 mg Versed, 50 mcg Fentanyl EBL: < 5cc Complications: none. Current vitals: BP 127/76, HR98, talking. O2 sats 98%.
[2019-03-16] MEDS: Folic Acid TAB* 1 MG PO SCH (09:53)
[2019-03-16] MEDS: Thiamine TAB* 100 MG TAB PO SCH (09:53)
[2019-03-16] MEDS: CMCS:OMEGA-3 FATTY ACIDS (NF) 1,000 MG CAP PO SCH (09:54)
[2019-03-16] MEDS: Multivitamins/Minerals TAB PO SCH (09:54)
[2019-03-16] MEDS: Insulin NPH(*) 1 UNITS UNIT SUBCUT SCH ×2 (09:54→15:54)
[2019-03-16] MEDS: Insulin REGULAR(*) 1 UNITS UNIT SUBCUT SCH ×3 (09:55→17:09)
[2019-03-16] MEDS: Acetaminophen TAB* 325 MG PO PRN (12:25)
[2019-03-16] MEDS: ceFAZolin 1 GM ADVAN(*) 1 GM in NS 0.9% 50 ML* 50 ML IVPB SCH ×2 (13:17→20:17)
[2019-03-16] MEDS ORDERED: Ketorolac INJ* 30 MG/ML 1 ML VIAL IV PUSH ONE (16:57)
[2019-03-16] MEDS: Atorvastatin* 20 MG TAB PO SCH (17:09)
--- NOTE | 2019-03-16 17:36 | PN ---
Subjective Date of Service: 03/16/19 Interval History: Patient went to pacemaker placement this morning. Patient felt pain 5/10 on the op site, otherwise no complain. Objective Active Medications: Acetaminophen (Tylenol Tab*) 975 mg PO Q8H PRN PRN Reason: Pain - Mild to Moderate Last Admin: 03/16/19 12:25 Dose: 975 mg Atorvastatin Calcium (Lipitor*) 20 mg PO 1700 [facility] Last Admin: 03/16/19 17:09 Dose: 20 mg Fenofibrate (Tricor) 54 mg PO DAILY [facility] Last Admin: 03/16/19 09:54 Dose: 54 mg Fish Oil (Fish Oil (Nf)) 1,000 mg PO DAILY [facility]; Protocol Last Admin: 03/16/19 09:54 Dose: 1,000 mg Folic Acid (Folvite Tab*) 1 mg PO DAILY [facility] Last Admin: 03/16/19 09:53 Dose: 1 mg Sodium Chloride (Ns 0.9% 1000 Ml) 1,000 mls @ 75 mls/hr IV PER RATE [facility] Last Admin: 03/16/19 06:16 Dose: 75 mls/hr Cefazolin Sodium 1 gm/ Sodium (Chloride) 50 mls @ 200 mls/hr IVPB Q6H [facility] Last Admin: 03/16/19 13:17 Dose: 200 mls/hr Insulin Human NPH (Insulin Nph(*)) 10 units SUBCUT 0700,1500 [facility] Last Admin: 03/16/19 15:54 Dose: 10 unit Insulin Human Regular (Insulin Regular(*)) 15 units SUBCUT AC [facility] Last Admin: 03/16/19 17:09 Dose: 15 units Multivitamins/Minerals (Theragran/Minerals Tab*) 1 tab PO DAILY [facility] Last Admin: 03/16/19 09:54 Dose: 1 tab Nicotine Polacrilex (Nicotine Gum*) 2 mg PO Q2H PRN PRN Reason: CRAVING Last Admin: 03/13/19 21:54 Dose: 2 mg Oxycodone/Acetaminophen (Percocet 5/325 Tab*) 1 tab PO Q4H PRN PRN Reason: PAIN - SEVERE Thiamine HCl (Vitamin B-1 Tab*) 100 mg PO DAILY [facility] Last Admin: 03/16/19 09:53 Dose: 100 mg Vital Signs - 8 hr 03/16/19 03/16/19 03/16/19 09:33 09:39 09:43 Temperature Pulse Rate 81 Respiratory 16 Rate Blood Pressure 141/90 (mmHg) O2 Sat by Pulse 95 95 Oximetry 03/16/19 03/16/19 03/16/19 10:01 10:14 10:44 Temperature Pulse Rate 77 94 95 Respiratory Rate Blood Pressure 123/88 132/79 (mmHg) O2 Sat by Pulse 95 95 98 Oximetry 03/16/19 03/16/19 03/16/19 11:00 11:14 11:39 Temperature 98.1 F Pulse Rate 90 99 94 Respiratory 16 Rate Blood Pressure 126/94 117/83 (mmHg) O2 Sat by Pulse 94 96 97 Oximetry 03/16/19 03/16/19 03/16/19 12:09 13:00 13:57 Temperature Pulse Rate 112 Respiratory Rate Blood Pressure 115/76 (mmHg) O2 Sat by Pulse 94 94 Oximetry 03/16/19 03/16/19 03/16/19 14:01 14:13 15:15 Temperature 96.9 F Pulse Rate 98 95 Respiratory 16 Rate Blood Pressure 116/73 (mmHg) O2 Sat by Pulse 93 91 Oximetry Oxygen Devices in Use Now: None Exam: General - NAD Eyes - PERRLA, EOM intact HEENT- no abnormality Cardiovascular - RRR no m/r/g, no JVD, no carotid bruits Lungs - Clear to auscltation, no use of acessory muscles, no crackles or wheezes. Skin - left operation site dressed appropriately Abdomen - Normal bowel sounds, abdomen soft and nontender Extremeties - No edema, cyanosis or clubbing Musculo Skeletal - 5/5 strength, normal range of motion, no swollen or erythematous joints. Neurological Alert and oriented x 3, CN 2-12 grossly intact. Psychiatry- mood stable Result Diagrams: 03/16/19 05:16 03/16/19 05:16 Additional Lab and Data: Lab Results 03/11/19 Range/Units 04:00 Urine Color Colorless Urine Appearance Clear Urine pH 5.0 (5-9) Ur Specific [place] 1.027 (1.010-1.030) Urine Protein Negative (Negative) Urine Ketones Trace A (Negative) Urine Blood Negative (Negative) Urine Nitrate Negative (Negative) Urine Bilirubin Negative (Negative) Urine Urobilinogen Negative (Negative) Ur Leukocyte Esterase Negative (Negative) Urine Glucose 3+(>=500 mg/dl) A (Negative) Microbiology and Other Data: Microbiology 03/11/19 07:46 Nasal Screen MRSA (PCR) - Final Nasal Mrsa Detected Assess/Plan/Problems-Billing 38M with history of etoh use disorder c/b hospitalization for acute pancreatitis , presents with R-flank pain and found with DKA and severe hypertriglyceridemia. Course complicated by difficult to control hyperglycemia, heart block, and lipemic blood complicating lab testing. - Patient Problems (1) Diabetes Current Visit: Yes Status: Acute Code(s): E11.9 - TYPE 2 DIABETES MELLITUS WITHOUT COMPLICATIONS SNOMED Code(s): 43024417 Comment: - Hgb A1c 10%. New diagnosis. Possibly from decreased insulin production from chronic pancreatitis. Could also have component of insulin resistence. - insulin regimen: regular insulin 15 units with meals; NPH insulin 10 units twice daily; sliding scale - aim to convert to 70/30 insulin twice daily at discharge (2) Diabetic ketoacidosis Current Visit: Yes Status: Acute Code(s): E11.10 - TYPE 2 DIABETES MELLITUS WITH KETOACIDOSIS WITHOUT COMA SNOMED Code(s): 047138530 Comment: Ag closed 03/13/2019, resolved trigerred by Etoh, substance use (3) Heart block Current Visit: Yes Status: Acute Code(s): I45.9 - CONDUCTION DISORDER, UNSPECIFIED SNOMED Code(s): 349732062 Comment: Elevated DC interval with frequent pauses. - Lyme test neg - pacemaker inserted today (4) Hypertriglyceridemia Current Visit: Yes Status: Acute Code(s): E78.1 - PURE HYPERGLYCERIDEMIA SNOMED Code(s): 419696065 Comment: Had normal levels years ago. - some improvement with insulin, no indication for plasma exchange - on fenofibrate, statin, DHA/EPA supplement - pt needs to completely avoid alcohol, avoid sugars, processed carbs (5) Hyperkalemia Current Visit: Yes Status: Acute Code(s): E87.5 - HYPERKALEMIA SNOMED Code (s): 89089460 Comment: resolved (6) DVT (deep venous thrombosis) Current Visit: Yes Status: Acute Code(s): I82.409 - ACUTE EMBOLISM AND THOMBOS UNSP DEEP VN UNSP LOWER EXTREMITY SNOMED Code(s): 427651580 Comment: pt ambulatory. Restart Lovenox tomorrow Status and Disposition: Inpatient Medicine Attestation Documenting Resident: Francesca Williamson Supervising Physician: Chu Attending/Supervising Physician Comment: Agree with plan as outlined in note from Dr. Williamson unless noted here. PPM today Counseled carb control and etoh cessation adjusting insulin regimen for stability prior to discharge Attestation: This service has been performed in part by a resident under the direction of a teaching physician.Chu Buenrostro, performed the service, or was physically present during the critical, or lopez portions of the service, furnished by the resident. I participated in the management of the patient.
[2019-03-16 20:13] LABS: Triglycerides 3341 mg/dL
[2019-03-16] MEDS: oxyCODONE/Acetamin 5/325 MG* TAB PO PRN (20:17)
[2019-03-16 20:26] LABS: Cholesterol 650 mg/dL; HDL Cholesterol 14.8 mg/dL; Potassium 4.1 mmol/L (3.5-5.0)
[2019-03-16 20:44] LABS: LDL Cholesterol Direct 75 mg/dL
[2019-03-17] MEDS: ceFAZolin 1 GM ADVAN(*) 1 GM in NS 0.9% 50 ML* 50 ML IVPB SCH ×2 (02:00→08:01)
[2019-03-17 07:33] VITALS: BP 140/91
[2019-03-17] MEDS: NS 0.9% 1000 ML** 1,000 ML IV SCH (07:34)
[2019-03-17] MEDS: Insulin REGULAR(*) 1 UNITS UNIT SUBCUT SCH (07:40)
[2019-03-17] MEDS: Insulin NPH(*) 1 UNITS UNIT SUBCUT SCH (07:46)
[2019-03-17] MEDS: Thiamine TAB* 100 MG TAB PO SCH (07:58)
[2019-03-17] MEDS: oxyCODONE/Acetamin 5/325 MG* TAB PO PRN (07:58)
[2019-03-17] MEDS: CMCS:OMEGA-3 FATTY ACIDS (NF) 1,000 MG CAP PO SCH (07:59)
[2019-03-17] MEDS: Folic Acid TAB* 1 MG PO SCH (07:59)
[2019-03-17] MEDS: Multivitamins/Minerals TAB PO SCH (07:59)
--- NOTE | 2019-03-17 12:10 | PRO ---
DUAL CHAMBER PACEMAKER INTERROGATION REPORT: DATE OF SERVICE: 03/17/19 This is a [employer] Software[employer]onic device, [place] XT DR MRI [id number], serial number [id number]. Date of implantation is 03/16/19. Pacemaker set in the DDD mode with lower rate of 60 and upper rate of 130 beats per minute. The patient is V-paced 16% of the time. Battery status 3.18 volts, atrial sensing 2.3 millivolts, RV sensing 4.3 millivolts, atrial lead impedance 437 ohms, ventricular lead impedance 532 ohms. Pacing: Atrial pacing threshold 0.5 volts at 0.4 milliseconds, ventricular pacing threshold 0.5 volts at 0.4 milliseconds. The patient is set in a DDD mode lower rate of 60, 3 volts at 0.4 milliseconds for the atrial lead and RV lead 3.5 volts at 0.4 milliseconds. P waves are measured at 2.5 millivolts. IMPRESSION: Normally functioning dual-chamber pacemaker. MVP on. PAV and SHE changed to 180 and 150 milliseconds respectively. MIRELLA function activated. Please see also chart documentation for further details. [id number]/[facility] #: [id number] MTDD
[2019-03-17] MEDS ORDERED: Enoxaparin(*) 40 MG/0.4 ML SYR SUBCUT SCH (18:00)
--- NOTE | 2019-03-17 21:03 | DS ---
CC: Dr. Winn; Dr. Olsen at [facility]; Dr. Mcdermott; Dr. Laurent Coch * DISCHARGE SUMMARY: DATE OF ADMISSION: 03/11/19 DATE OF DISCHARGE: 03/17/19 PRIMARY CARE PROVIDER: Dr. Winn. DISPOSITION ON DISCHARGE: Home. CONDITION ON DISCHARGE: Good. PROCEDURES PERFORMED DURING HOSPITAL STAY: Placement of permanent pacemaker on 03/16/19. PRIMARY DIAGNOSES: 1. Newly diagnosed diabetes, complicated by diabetic ketoacidosis. 2. Hypertriglyceridemia. 3. Asymptomatic high-degree atrioventricular block. 4. Alcoholism. PERTINENT LABORATORY DATA: Hemoglobin A1c 10.7, C-peptide 1.4, TSH 1.28, lipase 125, triglycerides on presentation 7102, decreased to 3341 on discharge. Negative HIV and negative Lyme antibodies. MEDICATIONS ON DISCHARGE: 1. Oxycodone 5/325 one tablet every 6 hours as needed, dispensed 30. 2. [place]-3 fatty acid 1000 mg daily. 3. 70/30 insulin 30 units in the morning and 20 units at night. 4. Fenofibrate 54 mg daily. 5. Keflex 500 mg 3 times a day for 5 days. 6. Atorvastatin 20 mg in the evening. 7. Tylenol 3 times a day as needed for pain. HISTORY OF PRESENT ILLNESS AND HOSPITAL COURSE: This is a 38-year-old man with past medical history as outlined in the history of present illness on the day of admission including history of alcohol use disorder as well as pancreatitis, who presented to the hospital with flank pain, polyuria, and polydipsia, identified with DKA, requiring admission to the ICU, insulin drip, who was incidentally noted to have hypertriglyceridemia as noted above with triglycerides above 7000, improved on omega-3 fatty acids, TriCor and treatment of his underlying diabetes. He was bridged from his insulin drip to long- acting insulin, ultimately transitioned over to regular insulin with NPH twice daily, discharged on 70/30 twice daily regimen, and necessary equipment for 4 times a day testing. Ample training was delivered for blood sugar testing and insulin delivery at home. The patient felt comfortable doing so. Additional counseling was given on a daily basis for adequate diet changes given his hypertriglyceridemia as well as uncontrolled diabetes. Additionally, counseling was given for alcohol cessation, it was not completely clear if the patient will remain sober upon leaving, indicating statements such as "I hope so" when asked if he felt that he would not continue to drink. During the course of his hospital stay, the patient was noted with intermittent third-degree heart block. Lyme serologies were negative and he ultimately had a pacemaker placed on the day prior to presentation. At the time of discharge, the patient was stable ambulating and tolerating consistent carbohydrate diet, understood restrictions on his left arm. He had his Medicaid activated on day of discharge. There was some difficulty relaying this information to the pharmacy ; however, a loop was closed, ultimately had his insulin [facility], the only one in the region that we can identify that had any available on formulation. There were no other complications during the course of the hospital stay. At followup please; as indicated above, followup revolves around his major issues. 1. Titrate insulin accordingly, may need to go up on the evening dose. His total daily dose was around 0.6 mg/kg. However, he was discharged on a slightly lower dose since he had a fasting glucose on the day of discharge of 84. 2. Follow triglycerides for continued improvement. 3. Continue to child and family counselor smoking cessation as well as alcohol cessation. 4. Ensure the patient follows with Cardiology for pacemaker placement. 5. No other specific labs or vitals that are pending at the time of discharge. Reasons to return to the hospital including but not limited to recurrent or worsening symptoms, chest pain, shortness of breath, nausea, vomiting, lightheadedness, loss of consciousness, near loss of consciousness, bleeding from any source including, pacemaker implantation, erythema, redness, tenderness around pacemaker implantation site, increased urination, thirst, abdominal pain, inability to obtain or tolerate medications were discussed with the patient and he acknowledged understanding. TIME SPENT: Greater than 1 hour spent on the discharge of the patient, greater than half spent [id number] with the patient. [id number]/[facility] #: [id number] EUGENIO
--- NOTE | 2019-03-29 11:06 | OP ---
OPERATIVE REPORT: DATE OF OPERATION: 03/16/19 DATE OF : 76 SURGEON: Katty Mcdermott MD. ANESTHESIA: MAC. PRE-OP DIAGNOSIS: Third-degree heart block. POST-OP DIAGNOSIS: Third-degree heart block. OPERATIVE PROCEDURE: Dual-chamber pacemaker implantation. ESTIMATED BLOOD LOSS: Less than 5 cc. COMPLICATIONS: None. DESCRIPTION OF PROCEDURE: The indications, risks, and benefits of the procedure were discussed with the patient. Lyme disease had been ruled out. The patient was amenable to proceeding. The patient is right-handed and the left subclavian fossa was prepped and draped in the usual sterile fashion and a time-out procedure was called. The patient received 10 cc of radiopaque dye in the left upper extremity outlining the left axillary and left subclavian veins. Following this, the patient received 1% lidocaine for local anesthesia in addition to Versed and fentanyl for sedation (5 mg Versed and 50 mcg fentanyl). Using a 10-blade kn vandana, a 2.5-cm incision was made in the left subclavian fossa, and using Bovie and blunt dissection, t he incision was extended to the level of the pectoralis muscle. Additional lidocaine was infused inf eriorly and medially, and using blunt dissection, a small pocket was fashioned. Using modified Seldinger technique, the left subclavian vein was accessed. A guidewire inserted usin g fluoroscopic guidance and guided into the right atrium. This procedure was repeated with a second g uidewire. Using an introducer technique, the ventricular lead was guided into the right ventricular apex and th en slid up on the septum, actively fixed in place. Pacing and sensing thresholds checked and found t o be good. Using the second guidewire and introducer technique, the atrial lead was guided in the right atrial a ppendage, actively fixed in place. Pacing and sensing thresholds checked and found to be good. The pocket was copiously irrigated with normal saline. The leads were attached to the generator. The ge nerator was placed in the pocket and the incision was closed using 2 layers of resorbable suture, 2-0 followed by 4-0, followed by evelyn and external dressing. FINDINGS: The system is an [employer] system. The device is a [employer] XT DR YUE Garcia . Model number WNDR01. Serial number [id number]. The atrial lead is a [employer] Electrictronic model 5076-52, serial number [id number]. The ventricular lead is a [employer] model 5076-58, serial number [id number]. P-waves are sensed at 2.9 millivolts with an atrial lead impedance of 808 ohms and an atrial pacing t hreshold of 0.9 volts at 0.5 milliseconds. The ventricular lead sensed R-waves at 4.2 millivolts with a ventricular lead impedance of 754 ohms w ith a ventricular pacing threshold of 0.4 volts at 0.5 milliseconds. The patient was programmed out of the OR in dual-chamber mode with a low rate of 60 beats a minute. CONCLUSION: Successful dual-chamber pacemaker implantation. No complications. The patient was hemod ynamically stable throughout the procedure and on transfer to the floor. [id number]/[facility] #: [id number]
== END 2019-03-17 13:25 | disposition home or self-care (01) | DRG 981 ==
LOC: ED 03:53 → ICU 06:38 → MEDTELE 03-13 10:35
PROVIDERS: ADMIT Internal Medicine; ATTEND Internal Medicine
PROC: 02H63JZ Insertion of Pacemaker Lead into Right Atrium, Percutaneous Approach (ICD-10-PCS; 2019-03-16)
PROC: 02HK3JZ Insertion of Pacemaker Lead into Right Ventricle, Percutaneous Approach (ICD-10-PCS; 2019-03-16)
PROC: 0JH606Z Insertion of Pacemaker, Dual Chamber into Chest Subcutaneous Tissue and Fascia, Open Approach (ICD-10-PCS; principal; 2019-03-16 07:00)
PROC: 4B02XSZ Measurement of Cardiac Pacemaker, External Approach (ICD-10-PCS; 2019-03-17)
DX: E11.10 Type 2 diabetes mellitus with ketoacidosis without coma (principal); K85.20 Alcohol induced acute pancreatitis without necrosis or infection; I44.2 Atrioventricular block, complete; E87.1 Hypo-osmolality and hyponatremia; I82.409 Acute embolism and thrombosis of unspecified deep veins of unspecified lower extremity; E78.1 Pure hyperglyceridemia; F10.20 Alcohol dependence, uncomplicated; F17.210 Nicotine dependence, cigarettes, uncomplicated; R10.9 Unspecified abdominal pain; E87.5 Hyperkalemia; G47.33 Obstructive sleep apnea (adult) (pediatric); I10 Essential (primary) hypertension; E78.00 Pure hypercholesterolemia, unspecified; D69.6 Thrombocytopenia, unspecified; E86.0 Dehydration; F14.10 Cocaine abuse, uncomplicated; F12.10 Cannabis abuse, uncomplicated; Z81.2 Family history of tobacco abuse and dependence; Z82.49 Family history of ischemic heart disease and other diseases of the circulatory system; Z83.3 Family history of diabetes mellitus; Z80.1 Family history of malignant neoplasm of trachea, bronchus and lung
CPT/HCPCS: 33208; 36415; 71045; 71046; 74160; 80048; 80053; 80061; 80076; 81003; 82374; 82803; 83036; 83605; 83690; 83721; 83735; 83935; 84100; 84300; 84439; 84443; 84478; 84481; 84484; 84520; 84681; 85025; 85027; 85610; 86618; 87389; 87641; 93005; 93306; 94660; 99156; 99285; A9270-GY; C1785; C1892; C1898; J0610; J0690; J1650; J1815; J1885; J1940; J2250; J2270; J3010; Q9967

== ENCOUNTER 2021-03-21 09:05 | Inpatient (IN) ==
[2021-03-21] MEDS ORDERED: Lactated Ringers 1000 ml BAG 1,000 ML IV ONE (10:52)
[2021-03-21] MEDS ORDERED: Ondansetron 4 mg VIAL 2 MG/ML 2 ml VIAL IV ONE (10:52)
[2021-03-21 11:52] LABS: ABS Eosinophils 0.1 10^3/ul (0-0.6); ABS Lymphocytes 0.6 10^3/ul (1.0-4.8); ABS Monocytes 0.8 10^3/ul (0-0.8); ABS Neutrophils 7.8 10^3/ul (1.5-7.7); Eosinophil % 1.4 %; Hematocrit 36 % (42-52); Hemoglobin 12.4 g/dL (14.0-18.0); Lymphocyte % 6.6 %; Mean Corpuscular HGB Conc 34 g/dL (31-36); Mean Corpuscular Hemoglobin 32 pg (27-31); Mean Corpuscular Volume 92 fL (80-94); Mean Platelet Volume 9.9 fL (7.4-10.4); Nucleated Red Blood Cells % 0.1; Platelet Count 207 10^3/uL (150-450); Red Blood Count 3.92 10^6 /uL (4.18-5.48); Red Cell Distribution Width 15 % (10-15); White Blood Count 9.4 10^3/uL (3.5-10.8)
[2021-03-21 12:05] LABS: Rapid COVID-19 Molecular Detected (Undetected)
[2021-03-21 12:09] LABS: Activated Partial Thrombo Time 26.8 seconds (26.0-38.0); INR 1.19 (0.86-1.15); Troponin I 0.01 ng/mL (<0.03)
[2021-03-21 12:10] LABS: Albumin 4.1 g/dL (3.2-5.2); C Reactive Protein 257.32 mg/L (<8.01); Calcium 8.3 mg/dL (8.6-10.3); EGFR African American 67.8 (>60); Potassium 3.2 mmol/L (3.5-5.0); Total Bilirubin 0.6 mg/dL (0.2-1.0); Total Protein 8.1 g/dL (6.4-8.9)
[2021-03-21 12:11] LABS: Influenza A Molecular Negative (Negative); Influenza B Molecular Negative (Negative)
[2021-03-21 12:52] LABS: Venous Bicarbonate HCO3 29.2 mmol/L (24-28)
[2021-03-21] MEDS ORDERED: Dextrose 50% Syringe 50 ml 25 GM/50 ML SYRINGE IV PUSH PRN (13:09)
[2021-03-21 13:16] LABS: Magnesium 1.5 mg/dL (1.9-2.7)
[2021-03-21] MEDS ORDERED: Magnesium Sulfate 2 gm BAG 2 GM/50 ML BAG IVPB ONE (14:02)
[2021-03-21] MEDS ORDERED: Potassium Chlor 20 meq TAB.ER PO ONE (14:02)
[2021-03-21 14:22] LABS: Ferritin 2228.1 ng/mL (24-336)
[2021-03-21] MEDS ORDERED: Remdesivir 100 mg Vial 200 MG in NS 0.9% 250 ml 210 ML IV ONE (14:30)
[2021-03-21] MEDS ORDERED: NS 0.9% 250 ml 250 ML ONE (14:41)
[2021-03-21] MEDS ORDERED: Nicotine Lozenge mini 2 MG LOZNG.MINI MT PRN (15:30)
[2021-03-21] MEDS: Enoxaparin 40 MG/0.4 ML SYR SUBCUT SCH (16:47)
[2021-03-21 17:57] LABS: INR 1.23 (0.86-1.15)
[2021-03-21] MEDS: Lactated Ringers 1000 ml BAG 1,000 ML IV SCH (18:43)
[2021-03-21] MEDS: Insulin ISOPH/REG 70/30 SUBCUT SCH (20:02)
[2021-03-22 06:23] LABS: ABS Lymphocytes 0.5 10^3/ul (1.0-4.8); ABS Monocytes 0.6 10^3/ul (0-0.8); ABS Neutrophils 6.4 10^3/ul (1.5-7.7); Hematocrit 34 % (42-52); Hemoglobin 11.8 g/dL (14.0-18.0); Lymphocyte % 7.2 %; Mean Corpuscular HGB Conc 35 g/dL (31-36); Mean Corpuscular Hemoglobin 32 pg (27-31); Mean Corpuscular Volume 92 fL (80-94); Platelet Count 225 10^3/uL (150-450); Red Blood Count 3.69 10^6 /uL (4.18-5.48); Red Cell Distribution Width 15 % (10-15); White Blood Count 7.6 10^3/uL (3.5-10.8)
[2021-03-22 06:29] LABS: INR 1.18 (0.86-1.15)
[2021-03-22 06:44] LABS: Albumin 3.8 g/dL (3.2-5.2); EGFR African American 105.2 (>60); EGFR Non-African American 86.9 (>60); Globulin 3.7 g/dL (2-4); Potassium 3.6 mmol/L (3.5-5.0); Total Protein 7.5 g/dL (6.4-8.9)
[2021-03-22 06:45] LABS: Total Bilirubin 0.4 mg/dL (0.2-1.0)
[2021-03-22] MEDS: Remdesivir 100 mg Vial 100 MG in NS 0.9% 250 ml 230 ML IV SCH (08:06)
[2021-03-22] MEDS: Insulin ISOPH/REG 70/30 SUBCUT SCH ×2 (08:16→20:58)
[2021-03-22] MEDS: Lactated Ringers 1000 ml BAG 1,000 ML IV SCH (11:57)
[2021-03-22] MEDS: Enoxaparin 40 MG/0.4 ML SYR SUBCUT SCH (15:32)
[2021-03-22] MEDS ORDERED: Al Hydrox/Mg Hydrox/Simet LIQ 30 ML UDC PO PRN (15:44)
[2021-03-22] MEDS ORDERED: Furosemide 20 mg/2 ml IV VIAL IV SLOW PU ONE (18:28)
[2021-03-23 06:26] LABS: INR 1.19 (0.86-1.15)
[2021-03-23 06:39] LABS: Albumin 3.6 g/dL (3.2-5.2); EGFR Non-African American 97.5 (>60); Globulin 3.6 g/dL (2-4); Potassium 3.4 mmol/L (3.5-5.0); Total Bilirubin 0.4 mg/dL (0.2-1.0); Total Protein 7.2 g/dL (6.4-8.9)
[2021-03-23 08:26] VITALS: BP 141/99
[2021-03-23] MEDS: Remdesivir 100 mg Vial 100 MG in NS 0.9% 250 ml 230 ML IV SCH (08:33)
[2021-03-23] MEDS ORDERED: Potassium Chlor 20 meq TAB.ER PO ONE (08:36)
[2021-03-23] MEDS: Insulin ISOPH/REG 70/30 SUBCUT SCH (08:37)
== END 2021-03-23 11:00 | disposition home or self-care (01) | DRG 137 ==
LOC: ED 09:05 → MED 15:39
PROVIDERS: ADMIT Hospitalist; ATTEND Internal Medicine